=== PATIENT | female | born 2000 | race Caucasian/White ===

== ENCOUNTER 2022-03-04 15:19 | Emergency (ER) | payer BC ==
--- OUTSIDE RECORDS SUMMARY | 2022-03-04 15:28 | XMS REPORT | Continuity of Care Document ---
:2000 Author Organization [facility] t Address [address] [place] [address] Care Team Providers Name Role Phone SylvieNisha Jerry Primary Care Physician ProviderDebbi Attending Clinician Unavailable ANGE GASTON Attending Clinician Unavailable Ange Gaston CNM Attending Clinician DOMNIIQUE PENNY Attending Clinician Unavailable Antonio, Olindarobert Attending Clinician Unavailable Brenton Aden MD Attending Clinician BRENTON ADEN Attending Clinician Unavailable Dominique Penny CNM Attending Clinician YARA EDDY Attending Clinician Unavailable Yara Eddy DO Attending Clinician JEFF NICHOLS Attending Clinician Unavailable Doctor Unassigned, Coward Attending Clinician Unavailable ADALBERTO CLOUD Attending Clinician Unavailable 2, [facility] Attending Clinician Unavailable Adalberto Cloud MD Attending Clinician Lab, [facility] Fam Pob I Attending Clinician Unavailable Sloane Dubois Attending Clinician SLOANE CANNON Attending Clinician Unavailable Jordi CHILD CARE, Jonathon Peña Attending Clinician JONATHON BACON Attending Clinician Unavailable [facility]ending [facility]ician Unavailable HAYLEE REED Attending Clinician Unavailable Serenity OSEGUERAC, Haylee Guillermo Attending Clinician Akinlincoln ANDERSONCNP, Hiram Guillermo Attending Clinician [phone] CHILD CARE, Rosa Attending Clinician Goyo SHAFFER, Basil Attending Clinician BASIL NANCE Attending Clinician Unavailable Bucky CHILD CARE, Char Attending Clinician HIRAM GLASS Attending Clinician Unavailable Manuel Leal Attending Clinician Catherine SHAFFER, Souleymane Lee Attending Clinician Marquis SHAFFER, Sarika Attending Clinician Nunu CHILD CARE, Omayra Geller Attending Clinician YARA EDDY Admitting Clinician Unavailable Payers Payer Name Policy Type Policy Number Effective Date Expiration Date S seth [employer] OF [place] - [id number] 2019 OUT OF STATE 00:00:00 [facility] [id number] 2021 [facility] 00:00:00 COMMERCIAL [id number] 2018 NON-CONTRACT 00:00:00 GENERIC Problems Condition Condition Condition Status Onset Resolution Last Treating Co mments Source Name Details Category Date Date Treatment Clinician Date Sadness Sadness Disease Active 2022-0 Univers 1-03 ity of 00:00: [place] 00 Medical Branch Nausea and Nausea and Disease Active 2021-02 U nivers vomiting vomiting 2-07 ity of during during 00:00: [place] 00 [facility] Branch History of History of Disease Active 2021-02 U nivers chlamydia chlamydia 0-26 ity of 00:00: [place] 00 Medical Branch Breakthrou Breakthrou Disease Active 0 U nivers gh gh 4-13 ity of bleeding bleeding 00:00: [place] on on 00 Medical Depo-Prove Depo-Prove Br anch ra ra Encounter Encounter Disease Active Uni vers for for 08-25 ity of initial initial 00:00: [place] prescripti prescripti 00 Me dical on of on of Branch contracept contracept wiliam, wiliam, unspecifie unspecifie d d contracept contracept gris gris Screen for Screen for Disease Active U nivers STD STD 08-25 ity of (sexually ([place]ually [place] transmit[place] transmitte 00 Me dical d disease) d disease) Br anch Body mass Body mass Disease Active Uni vers index index 08-25 ity of (BMI) of (BMI) of 00:00: [place] 19.0 to 19.0 to 00 Medical 19.9 in 19.9 in Branch adult adult Allergies, Adverse Reactions, Alerts Allergy Allergy Status Severity Reaction(s) Onset Inactive Treating Comm ents Source Name Type Date Date Clinician NO KNOWN Drug Active Univers ALLERGIE Class ity of S [facility] Social History Social Habit Start Date Stop Date Quantity Comments Source ASSERTION 2021-12-03 [facility] 00:00:00 [facility] History SDOH University o f Alcohol Comment [place] Med ical Branch History SDOH University o f Alcohol Std [place] Medical Drinks Branch History SDMS University o f Alcohol Binge [place] [facility] al [facility] Exposure to 2022-02-15 2022-02-25 Not sure [facility] SARS-CoV-2 00:00:00 14:00:00 [facility] (event) Branch Alcohol intake 2022-02-25 2022-02-25 Ex-drinker [facility] 00:00:00 00:00:00 (finding) [facility] Tobacco use and 2021-12-18 2021-12-18 Smokeless tobacco Un iversity of exposure 00:00:00 00:00:00 non-user [facility] History SDOH 2018-08-25 2018-08-25 1 University o f Alcohol Frequency 00:00:00 00:00:00 [facility] edical [place] Sex Assigned At [birth year] Universit y of 00:00:00 00:00:00 [facility] Smoking Status Start Date Stop Date Source Never smoked tobacco [facility] Medications Ordered Filled Start Stop Current Ordering Indication Dosage Frequency Signature Comments Components Source Medication Medication Date Date Medication? Clinician (SIG) Name Name proMETHazin 2021-02 Yes [id number] 25mg Take 1 Univers e 25 mg 2-06 tablet by ity of tablet 00:00: mouth [place] 00 every 4 Medical (four) Branch hours as needed for Nausea and Vomiting (N/V). proMETHazin 2021-02 Yes [id number] 25mg Take 1 Univers e 25 mg 2-06 tablet by ity of tablet 00:00: mouth [place] 00 every 4 Medical (four) Branch hours as needed for Nausea and Vomiting (N/V). proMETHazin 2021-02 Yes [id number] 25mg Take 1 Univers e 25 mg 2-06 tablet by ity of tablet 00:00: mouth [place] 00 every 4 Medical (four) Branch hours as needed for Nausea and Vomiting (N/V). NaCl 0.9% 2021-02- No 1000mL at 999 Uni vers (NS) bolus 1-06 11-06 mL/hr, ity of infusion 20:00: 21:30 1,000 mL, Mic as 1,000 mL 00 :00 IV Medical Infusion, Branch ONCE, 1 dose, On 12/29/21 at 1400, IZAIAH No known 2021-02 No No known Unive rs medications 1-06 medication it y of 12:01: s [address] No known 2021-02 No No known Unive rs medications 1-06 medication it y of 12:01: [address] 2021-02- No Take by Unive rs vit 0-26 10-26 mouth. ity of calc,iron,f 14:24: 00:00 [place] olic 53 :00 Medical ( Branch VITAMIN ORAL) 2021-02- No Take by Unive rs vit 0-26 10-26 mouth. ity of calc,iron,f 14:24: 00:00 [place] olic 53 :00 Medical ( Branch VITAMIN ORAL) PNV 67-iron 2021-02 Yes [id number] 1{capsu Take 1 Univers ps-folate 0-26 le} capsule by ity of no.1-dha 00:00: mouth [place] (VITAFOL 00 daily. Medical ULTRA) 29 Branch mg iron- 1 mg-200 mg Cap PNV 67-iron 2021-02- No [id number] 1{capsu Take 1 Univers ps-folate 0-26 11-06 le} capsule by ity of no.1-dha 00:00: 00:00 mouth [place] (VITAFOL 00 :00 daily. Medical ULTRA) 29 Branch mg iron- 1 mg-200 mg Cap PNV 67-iron 2021-02- No [id number] 1{capsu Take 1 Univers ps-folate 0-26 11-06 le} capsule by ity of no.1-dha 00:00: 00:00 mouth [place] (VITAFOL 00 :00 daily. Medical ULTRA) 29 Branch mg iron- 1 mg-200 mg Cap 2020-02 Yes [facility] 1-22 mouth. ity of calc,iron,f 14:22: [place] olic 00 Medical ( Branch VITAMIN ORAL) 2020-02 Yes Take by [facility] vit 1-22 mouth. ity of calc,iron,f 14:22: [place] olic 00 Medical ( Branch VITAMIN ORAL) 2020-02 Yes Take by [facility] vit 1-22 mouth. ity of calc,iron,f 14:22: [place] olic 00 Medical ( Branch VITAMIN ORAL) norgestimat 0 Yes [id number] 1{tbl} Take 1 Univers e-ethinyl 4-13 tablet by ity o f estradioL 00:00: mouth [place] (ORTHO 00 daily. Medical TRI-CYCLEN, [place] 28,) 0.18/0.215/ 0.25 mg-35 mcg (28) tablet norgestimat Yes [id number] 1{tbl} Take 1 Univers e-ethinyl 4-13 tablet by ity o f estradioL 00:00: mouth [place] (ORTHO 00 daily. Medical TRI-CYCLEN, [place] 28,) 0.18/0.215/ 0.25 mg-35 mcg (28) tablet norgestimat 0 Yes [id number] 1{tbl} Take 1 Univers e-ethinyl 4-13 tablet by ity o f estradioL 00:00: mouth [place] (ORTHO 00 daily. Medical TRI-CYCLEN, [place] 28,) 0.18/0.215/ 0.25 mg-35 mcg (28) tablet norgestimat 0 Yes [id number] 1{tbl} Take 1 Univers e-ethinyl 4-13 tablet by ity o f estradioL 00:00: mouth [place] (ORTHO 00 daily. [place] [address],) 0.18/0.215/ 0.25 mg-35 mcg (28) tablet norgestimat Yes [id number] 1{tbl} Take 1 Univers e-ethinyl 4-13 tablet by ity o f estradioL 00:00: mouth [place] (ORTHO 00 daily. [place] [address],) 0.18/0.215/ 0.25 mg-35 mcg (28) tablet norgestimat 2020-0 Yes [id number] 1{tbl} Take 1 Univers e-ethinyl 4-13 tablet by ity o f estradioL 00:00: mouth [place] (ORTHO 00 daily. [place] [address],) 0.18/0.215/ 0.25 mg-35 mcg (28) tablet norgestimat 0 2021- No [id number] 1{tbl} Take 1 Univers e-ethinyl 4-13 10-26 tablet by ity of estradioL 00:00: 00:00 mouth [place] (ORTHO 00 :00 daily. [place] [address],) 0.18/0.215/ 0.25 mg-35 mcg (28) tablet norgestimat 0 2021- No [id number] 1{tbl} Take 1 Univers e-ethinyl 4-13 10-26 tablet by ity of estradioL 00:00: 00:00 mouth [place] (ORTHO 00 :00 daily. [place] [address],) 0.18/0.215/ 0.25 mg-35 mcg (28) tablet azithromyci 2019-0 2019- No [id number] 1000mg Take 2 Univers n 500 mg 7-23 07-25 tablets by ity of tablet 00:00: 04:59 mouth [place] 00 :00 daily for Medical 1 day. Branch azithromyci 2020-0 2019- No [id number] 1000mg Take 2 Univers n 500 mg 7-23 07-25 tablets by ity of tablet 00:00: 04:59 mouth [place] 00 :00 daily for Medical 1 day. Branch azithromyci 2020-0 2019- No [id number] 1000mg Take 2 Univers n 500 mg 09-1425 tablets by ity of tablet 00:00: 04:59 mouth [place] 00 :00 daily for Medical 1 day. Branch azithromyci 2019- No [id number] 1000mg Take 2 Univers n 500 mg 7- 07-25 tablets by ity of tablet 00:00: 04:59 mouth [place] 00 :00 daily for Medical 1 day. Branch medroxyPROG 2020-2020- No [id number] 150mg Univers ESTERone 09-13- ity of (DEPO-PROVE 20:00: 19:59 [place] RA) 00 :00 Medical injection Branch 150 mg medroxyPROG 2019-2020- No [id number] 150mg 150 mg, Univers ESTERone 09-13 Intramuscu ity of (DEPO-PROVE 20:00: 19:59 lar, [place] RA) 00 :00 [id number], Medical injection 4 doses, Branch 150 mg First dose on Thu09/14/19 at 1500, Last dose on Thu05/23/20 at 1500, Routine medroxyPROG 2019- No [id number] 150mg Univers ESTERone 09-13- ity of (DEPO-PROVE 20:00: 19:59 [place] RA) 00 :00 Medical injection Branch 150 mg medroxyPROG 2019- No [id number] 150mg 150 mg, Univers ESTERone 09-13 Intramuscu ity of (DEPO-PROVE 20:00: 19:59 [facility], [place] RA) 00 :00 [id number], Medical injection 4 doses, Branch 150 mg First dose on Thu09/14/19 at 1500, Last dose on Thu05/23/20 at 1500, Routine medroxyPROG 2019-2020- No [id number] 150mg Univers ESTERone 09-13 ity of (DEPO-PROVE 20:00: 19:59 [place] RA) 00 :00 Medical injection Branch 150 mg medroxyPROG 2019- No [id number] 150mg Univers ESTERone 09-13- ity of (DEPO-PROVE 20:00: 19:59 [place] RA) 00 :00 Medical injection Branch 150 mg medroxyPROG 2019-2020- No [id number] 150mg Univers ESTERone 09-13- ity of (DEPO-PROVE 20:00: 19:59 [place] RA) 00 :00 Medical injection Branch 150 mg medroxyPROG 2020-0 2020- No [id number] 150mg Univers ESTERone 09-13- ity of (DEPO-PROVE 20:00: 19:59 [place] RA) 00 :00 Medical injection Branch 150 mg medroxyPROG 2020-0 2020- No [id number] 150mg Univers ESTERone 09-13- ity of (DEPO-PROVE 20:00: 19:59 [place] RA) 00 :00 Medical injection Branch 150 mg medroxyPROG 2020-0 2020- No [id number] 150mg Univers ESTERone 09-13- ity of (DEPO-PROVE 20:00: 19:59 [place] RA) 00 :00 Medical injection Branch 150 mg medroxyPROG 2020-0 2020- No [id number] 150mg 150 mg, Univers ESTERone 09-13- Intramuscu ity of (DEPO-PROVE 20:00: 19:59 lar, [place] RA) 00 :00 [id number], Medical injection 4 doses, Branch 150 mg First dose on Thu09/14/19 at 1500, Last dose on Thu05/23/20 at 1500, Routine medroxyPROG 2020-0 2020- No [id number] 150mg Univers ESTERone 09-13- ity of (DEPO-PROVE 20:00: 19:59 [place] RA) 00 :00 Medical injection Branch 150 mg medroxyPROG 2020-0 2020- No [id number] 150mg Univers ESTERone 09-13- ity of (DEPO-PROVE 20:00: 19:59 [place] RA) 00 :00 Medical injection Branch 150 mg medroxyPROG 2020-0 2020- No [id number] 150mg Univers ESTERone 09-13- ity of (DEPO-PROVE 20:00: 19:59 [place] RA) 00 :00 Medical injection Branch 150 mg medroxyPROG 2020-0 2020- No [id number] 150mg Univers ESTERone 09-13- ity of (DEPO-PROVE 20:00: 19:59 [place] RA) 00 :00 Medical injection Branch 150 mg medroxyPROG 2020-0 2020- No [id number] 150mg Univers ESTERone 09-13- ity of (DEPO-PROVE 20:00: 19:59 [place] RA) 00 :00 Medical injection Branch 150 mg medroxyPROG 2020-0 2020- No [id number] 150mg 150 mg, Univers ESTERone 09-13 Intramuscu ity of (DEPO-PROVE 20:00: 19:59 lar, [place] RA) 00 :00 [id number], Medical injection 4 doses, Branch 150 mg First dose on Thu09/14/19 at 1500, Last dose on Thu05/23/20 at 1500, Routine medroxyPROG 2019-0 2020- No [id number] 150mg Univers ESTERone 09-13 ity of (DEPO-PROVE 20:00: 19:59 [place] RA) 00 :00 Medical injection Branch 150 mg medroxyPROG 2020-0 2020- No [id number] 150mg Univers ESTERone 09-13- ity of (DEPO-PROVE 20:00: 19:59 [place] RA) 00 :00 Medical injection Branch 150 mg medroxyPROG 2020-0 2020- No [id number] 150mg Univers ESTERone 09-13- ity of (DEPO-PROVE 20:00: 19:59 [place] RA) 00 :00 Medical injection Branch 150 mg medroxyPROG 2019-0 Yes [id number] 150mg Univers ESTERone 7-03 ity of (DEPO-PROVE 21:00: [place] RA) 00 Medical injection Branch 150 mg medroxyPROG 2019-0 Yes [id number] 150mg Univers ESTERone 7-03 ity of (DEPO-PROVE 21:00: [place] RA) 00 Medical injection Branch 150 mg medroxyPROG 2019-0 Yes [id number] 150mg Univers ESTERone 7-03 ity of (DEPO-PROVE 21:00: [place] RA) 00 Medical injection Branch 150 mg medroxyPROG 2019-0 Yes [id number] 150mg Univers ESTERone 7-03 ity of (DEPO-PROVE 21:00: [place] RA) 00 Medical injection Branch 150 mg medroxyPROG 2019-0 Yes [id number] 150mg Univers ESTERone 7-03 ity of (DEPO-PROVE 21:00: [place] RA) 00 Medical injection Branch 150 mg medroxyPROG 2019-0 Yes [id number] 150mg Univers ESTERone 7-03 ity of (DEPO-PROVE 21:00: [place] RA) 00 Medical injection Branch 150 mg medroxyPROG 2019-0 Yes [id number] 150mg Univers ESTERone 7-03 ity of (DEPO-PROVE 21:00: [place] RA) 00 Medical injection Branch 150 mg medroxyPROG 2019-0 Yes [id number] 150mg Univers ESTERone 7-03 ity of (DEPO-PROVE 21:00: [place] RA) 00 Medical injection Branch 150 mg medroxyPROG 2019-0 Yes [id number] 150mg Univers ESTERone 7-03 ity of (DEPO-PROVE 21:00: [place] RA) 00 Medical injection Branch 150 mg medroxyPROG 2019-0 Yes [id number] 150mg Univers ESTERone 7-03 ity of (DEPO-PROVE 21:00: [place] RA) 00 Medical injection Branch 150 mg medroxyPROG 2018-0 Yes [id number] 150mg Univers ESTERone 7-03 ity of (DEPO-PROVE 21:00: [place] RA) 00 Medical injection Branch 150 mg medroxyPROG 2018-0 Yes [id number] 150mg Univers ESTERone 7-03 ity of (DEPO-PROVE 21:00: [place] RA) 00 Medical injection Branch 150 mg medroxyPROG 2018-0 Yes [id number] 150mg 150 mg, Univers ESTERone 7-03 Intramuscu ity o f (DEPO-PROVE 21:00: lar, [place] RA) 00 [id number], Medical injection First dose Bran ch 150 mg on Thu08/25/18 at 1600, Until Discontinu ed, Routine medroxyPROG 2018- Yes [id number] 150mg Univers ESTERone 7-03 ity of (DEPO-PROVE 21:00: [place] RA) 00 Medical injection Branch 150 mg medroxyPROG 2019-0 Yes [id number] 150mg Univers ESTERone 7-03 ity of (DEPO-PROVE 21:00: [place] RA) 00 Medical injection Branch 150 mg medroxyPROG 2019-0 Yes [id number] 150mg Univers ESTERone 7-03 ity of (DEPO-PROVE 21:00: [place] RA) 00 Medical injection Branch 150 mg medroxyPROG 2018-0 Yes [id number] 150mg Univers ESTERone 7-03 ity of (DEPO-PROVE 21:00: [place] RA) 00 Medical injection Branch 150 mg medroxyPROG 2019-0 Yes [id number] 150mg Univers ESTERone 7-03 ity of (DEPO-PROVE 21:00: [place] RA) 00 Medical injection Branch 150 mg medroxyPROG 2019-0 Yes [id number] 150mg Univers ESTERone 7-03 ity of (DEPO-PROVE 21:00: [place] RA) 00 Medical injection Branch 150 mg medroxyPROG 2019-0 Yes [id number] 150mg 150 mg, Univers ESTERone 7-03 Intramuscu ity o f (DEPO-PROVE 21:00: lar, [place] RA) 00 [id number], Medical injection First dose Bran ch 150 mg on Thu08/25/18 at 1600, Until Discontinu ed, Routine medroxyPROG 2018-0 Yes [id number] 150mg Univers ESTERone 7-03 ity of (DEPO-PROVE 21:00: [place] RA) 00 Medical injection Branch 150 mg medroxyPROG 2019-0 Yes [id number] 150mg Univers ESTERone 7-03 ity of (DEPO-PROVE 21:00: [place] RA) 00 Medical injection Branch 150 mg medroxyPROG 2019-0 Yes [id number] 150mg Univers ESTERone 7-03 ity of (DEPO-PROVE 21:00: [place] RA) 00 Medical injection Branch 150 mg medroxyPROG 2019-0 Yes [id number] 150mg Univers ESTERone 7-03 ity of (DEPO-PROVE 21:00: [place] RA) 00 Medical injection Branch 150 mg medroxyPROG 2019-0 Yes [id number] 150mg Univers ESTERone 7-03 ity of (DEPO-PROVE 21:00: [place] RA) 00 Medical injection Branch 150 mg medroxyPROG 2019-0 Yes [id number] 150mg Univers ESTERone 7-03 ity of (DEPO-PROVE 21:00: [place] RA) 00 Medical injection Branch 150 mg medroxyPROG 2019-0 2020- No [id number] 150mg Univers ESTERone 7-03 -22 ity of (DEPO-PROVE 21:00: 19:47 [place] RA) 00 :30 Medical injection Branch 150 mg medroxyPROG 2019-0 2020- No [id number] 150mg Univers ESTERone 7-03 -22 ity of (DEPO-PROVE 21:00: 19:47 [place] RA) 00 :30 Medical injection Branch 150 mg Immunizations Ordered Immunization Filled Immunization Date Status Commen ts Source Name Name Influenza Virus 2021-12-18 Completed Universit y of Vaccine [facility] IM, 00:00:00 [place] Me dical Preserv and ABX Free Bran ch 6 MO-64 YRS Influenza Virus 2021-12-18 Completed Universit y of Vaccine [facility] IM, 00:00:00 [place] Me dical Preserv and ABX Free Bran ch 6 MO-64 YRS Influenza Virus 2021-12-18 Completed Universit y of Vaccine Quad IM, 00:00:00 [place] Me dical Preserv and ABX Free Bran ch 6 MO-64 YRS Influenza Virus 2021-12-18 Completed Universit y of Vaccine Quad IM, 00:00:00 [place] Me dical Preserv and ABX Free Bran ch 6 MO-64 YRS Influenza Virus 2021-12-18 Completed Universit y of Vaccine Quad IM, 00:00:00 [place] Me dical Preserv and ABX Free Bran ch 6 MO-64 YRS Influenza Virus 2021-12-18 Completed Universit y of Vaccine Quad IM, 00:00:00 [place] Me dical Preserv and ABX Free Bran ch 6 MO-64 YRS Influenza Virus 2021-12-18 Completed Universit y of Vaccine Quad IM, 00:00:00 [place] Me dical Preserv and ABX Free Bran ch 6 MO-64 YRS Influenza Virus 2021-12-18 Completed Universit y of Vaccine Quad IM, 00:00:00 [place] Me dical Preserv and ABX Free Bran ch 6 MO-64 YRS SARS-COV-2 COVID-19 2021-02-13 Completed Unive rsity of PFIZER VACCINE 00:00:00 [facility] SARS-COV-2 COVID-19 2021-02-13 Completed Unive rsity of PFIZER VACCINE 00:00:00 [facility] SARS-COV-2 COVID-19 2021-02-13 Completed Unive rsity of PFIZER VACCINE 00:00:00 [facility] SARS-COV-2 COVID-19 2021-02-13 Completed Unive rsity of PFIZER VACCINE 00:00:00 [facility] SARS-COV-2 COVID-19 2021-02-13 Completed Unive rsity of PFIZER VACCINE 00:00:00 [facility] SARS-COV-2 COVID-19 2021-02-13 Completed Unive rsity of PFIZER VACCINE 00:00:00 [facility] SARS-COV-2 COVID-19 2021-02-13 Completed Unive rsity of PFIZER VACCINE 00:00:00 [facility] SARS-COV-2 COVID-19 2021-02-13 Completed Unive rsity of PFIZER VACCINE 00:00:00 [facility] HPV9 2019-02-28 Completed University of 00:00:00 [facility] HPV9 2019-02-28 Completed University of 00:00:00 [facility] HPV9 2019-02-28 Completed University of 00:00:00 [facility] HPV9 2019-02-28 Completed University of 00:00:00 [facility] HPV9 2019-02-28 Completed University of 00:00:00 [facility] HPV9 2019-02-28 Completed University of 00:00:00 [facility] HPV9 2019-02-28 Completed University of 00:00:00 [facility] HPV9 2019-02-28 Completed University of 00:00:00 [facility] HPV9 2019-02-28 Completed University of 00:00:00 [facility] HPV9 2019-02-28 Completed University of 00:00:00 [facility] HPV9 2019-02-28 Completed University of 00:00:00 [facility] HPV9 2019-02-28 Completed University of 00:00:00 [facility] HPV9 2019-02-28 Completed University of 00:00:00 [facility] HPV9 2019-02-28 Completed University of 00:00:00 [facility] HPV9 2019-02-28 Completed University of 00:00:00 [facility] HPV9 2019-02-28 Completed University of 00:00:00 [facility] HPV9 2019-02-28 Completed University of 00:00:00 [facility] HPV9 2019-02-28 Completed University of 00:00:00 [facility] HPV9 2019-02-28 Completed University of 00:00:00 [facility] HPV9 2019-02-28 Completed University of 00:00:00 [facility] HPV9 2019-02-28 Completed University of 00:00:00 [facility] HPV9 2019-02-28 Completed University of 00:00:00 [facility] HPV9 2019-02-28 Completed University of 00:00:00 [place] [facility] HPV9 2019-02-28 Completed University of 00:00:00 [place] [facility] HPV9 2019-02-28 Completed University of 00:00:00 [place] [facility] HPV9 2019-02-28 Completed University of 00:00:00 [place] [facility] HPV9 2019-02-28 Completed University of 00:00:00 [place] [facility] HPV9 2019-02-28 Completed University of 00:00:00 [place] [facility] HPV9 2019-02-28 Completed University of 00:00:00 [place] [facility] HPV9 2019-02-28 Completed University of 00:00:00 [place] [facility] HPV9 2019-02-28 Completed University of 00:00:00 [place] [facility] HPV9 2019-02-28 Completed University of 00:00:00 [place] [facility] HPV9 2019-02-28 Completed University of 00:00:00 [place] [facility] HPV9 2019-02-28 Completed University of 00:00:00 [place] [facility] HPV9 2019-02-28 Completed University of 00:00:00 [place] [facility] HPV9 2019-02-28 Completed University of 00:00:00 [place] [facility] HPV9 2019-02-28 Completed University of 00:00:00 [place] [facility] HPV9 2018-09-27 Completed University of 00:00:00 [place] [facility] HPV9 2018-09-27 Completed University of 00:00:00 [place] [facility] HPV9 2018-09-27 Completed University of 00:00:00 [place] [facility] HPV9 2018-09-27 Completed University of 00:00:00 [place] [facility] HPV9 2018-09-27 Completed University of 00:00:00 [place] [facility] HPV9 2018-09-27 Completed University of 00:00:00 [place] [facility] HPV9 2018-09-27 Completed University of 00:00:00 [place] [facility] HPV9 2018-09-27 Completed University of 00:00:00 [place] [facility] HPV9 2018-09-27 Completed University of 00:00:00 [place] [facility] HPV9 2018-09-27 Completed University of 00:00:00 [place] [facility] HPV9 2018-09-27 Completed University of 00:00:00 [place] [facility] HPV9 2018-09-27 Completed University of 00:00:00 [place] [facility] HPV9 2018-09-27 Completed University of 00:00:00 [place] [facility] HPV9 2018-09-27 Completed University of 00:00:00 [place] [facility] HPV9 2018-09-27 Completed University of 00:00:00 [place] [facility] HPV9 2018-09-27 Completed University of 00:00:00 [place] [facility] HPV9 2018-09-27 Completed University of 00:00:00 [place] [facility] HPV9 2018-09-27 Completed University of 00:00:00 [place] [facility] HPV9 2018-09-27 Completed University of 00:00:00 [place] [facility] HPV9 2018-09-27 Completed University of 00:00:00 [place] [facility] HPV9 2018-09-27 Completed University of 00:00:00 [place] [facility] HPV9 2018-09-27 Completed University of 00:00:00 [place] [facility] HPV9 2018-09-27 Completed University of 00:00:00 [place] [facility] HPV9 2018-09-27 Completed University of 00:00:00 [place] [facility] HPV9 2018-09-27 Completed University of 00:00:00 [place] [facility] HPV9 2018-09-27 Completed University of 00:00:00 [place] [facility] HPV9 2018-09-27 Completed University of 00:00:00 [place] [facility] HPV9 2018-09-27 Completed University of 00:00:00 [place] [facility] HPV9 2018-09-27 Completed University of 00:00:00 [place] [facility] HPV9 2018-09-27 Completed University of 00:00:00 [place] [facility] HPV9 2018-09-27 Completed University of 00:00:00 [place] [facility] HPV9 2018-09-27 Completed University of 00:00:00 [place] [facility] [facility] HPV9 2018-09-27 Completed [facility] 00:00:00 [facility] HPV9 2018-09-27 Completed [facility] 00:00:00 [facility] HPV9 2018-09-27 Completed [facility] 00[facility]00:00 [facility] HPV9 2018-09-27 Completed [facility] 00:00:00 [facility] HPV9 2018-09-27 Completed [facility] 00:00:00 [facility] HPV9 2018-09-27 Completed [facility] 00:00:00 [facility] HPV9 2018-09-27 Completed [facility] 00:00:00 [facility] HPV9 2018-09-27 Completed [facility] 00:00:00 [facility] HPV9 2018-09-27 Completed [facility] 00:00:00 [facility] HPV9 2018-09-27 Completed [facility] 00:00:00 [facility] HPV9 2018-09-27 Completed [facility] 00:00:00 [facility] HPV9 2018-09-27 Completed [facility] 00:00:00 [facility] HPV9 2018-09-27 Completed [facility] 00:00:00 [facility] HPV9 2018-09-27 Completed [facility] 00:00:00 [facility] HPV9 2018-09-27 Completed [facility] 00:00:00 [facility] HPV9 2018-09-27 Completed [facility] 00:00:00 [facility] HPV9 2018-09-27 Completed [facility] 00:00:00 [facility] HPV9 2018-09-27 Completed [facility] 00:00:00 [facility] HPV9 2018-09-27 Completed [facility] 00:00:00 [facility] HPV9 2018-08-25 Completed [facility] 00:00:00 [facility] HPV9 2018-08-25 Completed [facility] 00:00:00 [facility] HPV9 2018-08-25 Completed [facility] 00:00:00 [facility] HPV9 2018-08-25 Completed [facility] 00:00:00 [facility] HPV9 2018-08-25 Completed [facility] 00:00:00 [facility] HPV9 2018-08-25 Completed [facility] 00:00:00 [facility] HPV9 2018-08-25 Completed [facility] 00:00:00 [facility] HPV9 2018-08-25 Completed [facility] 00:00:00 [facility] HPV9 2018-08-25 Completed [facility] 00:00:00 [facility] HPV9 2018-08-25 Completed [facility] 00:00:00 [facility] HPV9 2018-08-25 Completed [facility] 00:00:00 [facility] HPV9 2018-08-25 Completed [facility] 00:00:00 [facility] HPV9 2018-08-25 Completed [facility] 00:00:00 [facility] HPV9 2018-08-25 Completed [facility] 00:00:00 [facility] HPV9 2018-08-25 Completed [facility] 00:00:00 [facility] HPV9 2018-08-25 Completed [facility] 00:00:00 [facility] HPV9 2018-08-25 Completed [facility] 00:00:00 [facility] HPV9 2018-08-25 Completed [facility] 00:00:00 [facility] HPV9 2018-08-25 Completed [facility] 00:00:00 [facility] HPV9 2018-08-25 Completed [facility] 00:00:00 [facility] HPV9 2018-08-25 Completed [facility] 00:00:00 [facility] HPV9 2018-08-25 Completed [facility] 00:00:00 [facility] HPV9 2018-08-25 Completed [facility] 00:00:00 [facility] HPV9 2018-08-25 Completed [facility] 00:00:00 [facility] HPV9 2018-08-25 Completed [facility] 00:00:00 [facility] HPV9 2018-08-25 Completed [facility] 00:00:00 [facility] HPV9 2018-08-25 Completed [facility] 00:00:00 [facility] HPV9 2018-08-25 Completed [facility] 00:00:00 [facility] HPV9 2018-08-25 Completed [facility] 00:00:00 [facility] HPV9 2018-08-25 Completed [facility] 00:00:00 [facility] HPV9 2018-08-25 Completed [facility] 00:00:00 [facility] HPV9 2018-08-25 Completed [facility] 00:00:00 [facility] HPV9 2018-08-25 Completed [facility] 00:00:00 [facility] HPV9 2018-08-25 Completed [facility] 00:00:00 [facility] HPV9 2018-08-25 Completed [facility] 00:00:00 [facility] HPV9 2018-08-25 Completed [facility] 00:00:00 [facility] HPV9 2018-08-25 Completed [facility] 00:00:00 [facility] HPV9 2018-08-25 Completed [facility] 00:00:00 [facility] HPV9 2018-08-25 Completed [facility] 00:00:00 [facility] HPV9 2018-08-25 Completed [facility] 00:00:00 [facility] HPV9 2018-08-25 Completed [facility] 00:00:00 [facility] HPV9 2018-08-25 Completed [facility] 00:00:00 [facility] HPV9 2018-08-25 Completed [facility] 00:00:00 [facility] HPV9 2018-08-25 Completed [facility] 00:00:00 [facility] HPV9 2018-08-25 Completed [facility] 00:00:00 [facility] HPV9 2018-08-25 Completed [facility] 00:00:00 [facility] HPV9 2018-08-25 Completed [facility] 00:00:00 [facility] HPV9 2018-08-25 Completed [facility] 00:00:00 [facility] HPV9 2018-08-25 Completed [facility] 00:00:00 [facility] HPV9 2018-08-25 Completed [facility] 00:00:00 [facility] HPV9 2018-08-25 Completed [facility] 00:00:00 [facility] Meningococcal Vaccine 2018-07-14 Completed Uni vers[facility] 00:00:00 [facility] Meningococcal Vaccine 2018-07-14 Completed [facility] 00:00:00 [facility] Meningococcal Vaccine 2018-07-14 Completed [facility] 00:00:00 [facility] Meningococcal Vaccine 2018-07-14 Completed [facility] 00:00:00 [facility] Meningococcal Vaccine 2018-07-14 Completed [facility] 00:00:00 [facility] Meningococcal Vaccine 2018-07-14 Completed [facility] 00:00:00 [facility] Meningococcal Vaccine 2018-07-14 Completed [facility] 00:00:00 [facility] Meningococcal Vaccine 2018-07-14 Completed [facility] 00:00:00 [facility] Meningococcal Vaccine 2018-07-14 Completed [facility] 00:00:00 [facility] Meningococcal 2018-07-14 Completed [facility] Pol[facility] 00:00:00 [facility] (groups A, C, Y and Branc h W-135) conjugate vaccine (MCV4P) Meningococcal Vaccine 2018-07-14 Completed [facility] 00:00:00 [facility] Meningococcal 2018-07-14 Completed [facility] Polysaccharide 00:00:00 [facility] (groups A, C, Y and Branc h W-135) conjugate vaccine (MCV4P) Meningococcal Vaccine 2018-07-14 Completed [facility] 00:00:00 [facility] Meningococcal 2018-07-14 Completed [facility] Polysaccharide 00:00:00 [facility] (groups A, C, Y and Branc h W-135) conjugate vaccine (MCV4P) Meningococcal Vaccine 2018-07-14 Completed [facility] 00:00:00 [facility] Meningococcal Vaccine 2018-07-14 Completed [facility] 00:00:00 [facility] Meningococcal Vaccine 2018-07-14 Completed [facility] 00:00:00 [facility] Meningococcal Vaccine 2018-07-14 Completed [facility] 00:00:00 [facility] Meningococcal Vaccine 2018-07-14 Completed [facility] 00:00:00 [facility] Meningococcal Vaccine 2018-07-14 Completed [facility] 00:00:00 [facility] Meningococcal Vaccine 2018-07-14 Completed [facility] 00:00:00 [facility] Meningococcal Vaccine 2018-07-14 Completed [facility] 00:00:00 [facility] Meningococcal Vaccine 2018-07-14 Completed [facility] 00:00:00 [facility] Meningococcal Vaccine 2018-07-14 Completed [facility] 00:00:00 [facility] Meningococcal Vaccine 2018-07-14 Completed [facility] 00:00:00 [facility] Meningococcal Vaccine 2018-07-14 Completed [facility] 00:00:00 [facility] Meningococcal Vaccine 2018-07-14 Completed [facility] 00:00:00 [facility] Meningococcal Vaccine 2018-07-14 Completed [facility] 00:00:00 [facility] Meningococcal Vaccine 2018-07-14 Completed [facility] 00:00:00 [facility] Meningococcal Vaccine 2018-07-14 Completed [facility] 00:00:00 [facility] Meningococcal Vaccine 2018-07-14 Completed [facility] 00:00:00 [facility] Meningococcal Vaccine 2018-07-14 Completed [facility] 00:00:00 [facility] Meningococcal Vaccine 2018-07-14 Completed [facility] 00:00:00 [facility] Meningococcal Vaccine 2018-07-14 Completed [facility] 00:00:00 [facility] Meningococcal Vaccine 2018-07-14 Completed [facility] 00:00:00 [facility] Meningococcal Vaccine 2018-07-14 Completed [facility] 00:00:00 [facility] Meningococcal Vaccine 2018-07-14 Completed [facility] 00:00:00 [facility] Meningococcal Vaccine 2013-10-14 Completed [facility] 00:00:00 [facility] TDAP 2013-10-14 Completed [facility] 00:00:00 [facility] Varicella 2013-10-14 Completed [facility] (varivax)(chicken 00:00:00 [facility] Meningococcal Vaccine 2013-10-14 Completed [facility] 00:00:00 [facility] TDAP 2013-10-14 Completed [facility] 00:00:00 [facility] Varicella 2013-10-14 Completed [facility] (varivax)(chicken 00:00:00 [facility] pox[facility] Meningococcal Vaccine 2013-10-14 Completed [facility] 00:00:00 [facility] TDAP 2013-10-14 Completed [facility] 00:00:00 [facility] Varicella 2013-10-14 Completed [facility] (varivax)(chicken 00:00:00 [facility] pox[facility] Meningococcal Vaccine 2013-10-14 Completed [facility] 00:00:00 [facility] TDAP 2013-10-14 Completed [facility] 00:00:00 [facility] Varicella 2013-10-14 Completed [facility] (varivax)(chicken 00:00:00 [facility] pox) [facility] Meningococcal Vaccine 2013-10-14 Completed [facility] 00:00:00 [facility] TDAP 2013-10-14 Completed [facility] 00:00:00 [facility] Varicella 2013-10-14 Completed [facility] (varivax)(chicken 00:00:00 [facility] pox[facility] Meningococcal Vaccine 2013-10-14 Completed [facility] 00:00:00 [facility] TDAP 2013-10-14 Completed [facility] 00:00:00 [facility] Varicella 2013-10-14 Completed [facility] (varivax)(chicken 00:00:00 [facility] pox[facility] Meningococcal Vaccine 2013-10-14 Completed [facility] 00:00:00 [facility] TDAP 2013-10-14 Completed [facility] 00:00:00 [facility] Varicella 2013-10-14 Completed [facility] (varivax)(chicken 00:00:00 [facility] pox) [facility] Meningococcal Vaccine 2013-10-14 Completed [facility] 00:00:00 [facility] TDAP 2013-10-14 Completed [facility] 00:00:00 [facility] Varicella 2013-10-14 Completed [facility] (varivax)(chicken 00:00:00 [facility] pox) [facility] Meningococcal Vaccine 2013-10-14 Completed [facility] 00:00:00 [facility] TDAP 2013-10-14 Completed [facility] 00:00:00 [facility] Varicella 2013-10-14 Completed [facility] (varivax)(chicken 00:00:00 [facility] pox) [facility] Meningococcal 2013-10-14 Completed [facility] Polysaccharide 00:00:00 [facility] (groups A, C, Y and Branc h W-135) conjugate vaccine (MCV4P) Meningococcal Vaccine 2013-10-14 Completed [facility] 00:00:00 [facility] TDAP 2013-10-14 Completed [facility] 00:00:00 [facility] Varicella 2013-10-14 Completed [facility] (varivax)(chicken 00:00:00 [facility] pox) [facility] Meningococcal 2013-10-14 Completed [facility] Polysaccharide 00:00:00 [place] [facility] (groups A, C, Y and Branc h W-135) conjugate vaccine (MCV4P) Meningococcal Vaccine 2013-10-14 Completed [facility] 00:00:00 [facility] TDAP 2013-10-14 Completed [facility] 00:00:00 [facility] Varicella 2013-10-14 Completed [facility] (varivax)(chicken 00:00:00 [facility] pox) [facility] Meningococcal 2013-10-14 Completed [facility] Polysaccharide 00:00:00 [facility] (groups A, C, Y and Branc h W-135) conjugate vaccine (MCV4P) Meningococcal Vaccine 2013-10-14 Completed [facility] 00:00:00 [facility] Tdap 2013-10-14 Completed [facility] 00:00:00 [facility] Varicella 2013-10-14 Completed [facility] (varivax)(chicken 00:00:00 [facility] pox) [facility] Meningococcal Vaccine 2013-10-14 Completed [facility] 00:00:00 [facility] Tdap 2013-10-14 Completed [facility] 00:00:00 [facility] Varicella 2013-10-14 Completed [facility] (varivax)(chicken 00:00:00 [facility] pox) [facility] Meningococcal Vaccine 2013-10-14 Completed [facility] 00:00:00 [facility] Tdap 2013-10-14 Completed [facility] 00:00:00 [facility] Varicella 2013-10-14 Completed [facility] (varivax)(chicken 00:00:00 [facility] pox) [facility] Meningococcal Vaccine 2013-10-14 Completed [facility] 00:00:00 [facility] Tdap 2013-10-14 Completed [facility] 00:00:00 [facility] Varicella 2013-10-14 Completed [facility] (varivax)(chicken 00:00:00 [facility] pox) [facility] Meningococcal Vaccine 2013-10-14 Completed [facility] 00:00:00 [facility] Tdap 2013-10-14 Completed [facility] 00:00:00 [facility] Varicella 2013-10-14 Completed [facility] (varivax)(chicken 00:00:00 [facility] pox) [facility] Meningococcal Vaccine 2013-10-14 Completed [facility] 00:00:00 [facility] Tdap 2013-10-14 Completed [facility] 00:00:00 [facility] Varicella 2013-10-14 Completed [facility] (varivax)(chicken 00:00:00 [facility] pox) [facility] Meningococcal Vaccine 2013-10-14 Completed [facility] 00:00:00 [facility] TDAP 2013-10-14 Completed [facility] 00:00:00 [facility] Varicella 2013-10-14 Completed [facility] (varivax)(chicken 00:00:00 [facility] pox) [facility] Meningococcal Vaccine 2013-10-14 Completed [facility] 00:00:00 [facility] TDAP 2013-10-14 Completed [facility] 00:00:00 [facility] Varicella 2013-10-14 Completed [facility] (varivax)(chicken 00:00:00 [facility] pox) [facility] Meningococcal Vaccine 2013-10-14 Completed [facility] 00:00:00 [facility] TDAP 2013-10-14 Completed [facility] 00:00:00 [facility] Varicella 2013-10-14 Completed [facility] (varivax)(chicken 00:00:00 [facility] pox) [facility] Meningococcal Vaccine 2013-10-14 Completed [facility] 00:00:00 [facility] TDAP 2013-10-14 Completed [facility] 00:00:00 [facility] Varicella 2013-10-14 Completed [facility] (varivax)(chicken 00:00:00 [facility] pox) [facility] Meningococcal Vaccine 2013-10-14 Completed [facility] 00:00:00 [facility] TDAP 2013-10-14 Completed [facility] 00:00:00 [facility] Varicella 2013-10-14 Completed [facility] (varivax)(chicken 00:00:00 [facility] pox) [facility] Meningococcal Vaccine 2013-10-14 Completed [facility] 00:00:00 [facility] TDAP 2013-10-14 Completed [facility] 00:00:00 [facility] Varicella 2013-10-14 Completed [facility] (varivax)(chicken 00:00:00 [facility] pox) [facility] Meningococcal Vaccine 2013-10-14 Completed [facility] 00:00:00 [facility] TDAP 2013-10-14 Completed [facility] 00:00:00 [facility] Varicella 2013-10-14 Completed [facility] (varivax)(chicken 00:00:00 [facility] pox) [facility] Meningococcal Vaccine 2013-10-14 Completed [facility] 00:00:00 [facility] TDAP 2013-10-14 Completed [facility] 00:00:00 [facility] Varicella 2013-10-14 Completed [facility] (varivax)(chicken 00:00:00 [facility] pox) [facility] Meningococcal Vaccine 2013-10-14 Completed [facility] 00:00:00 [facility] TDAP 2013-10-14 Completed [facility] 00:00:00 [facility] Varicella 2013-10-14 Completed [facility] (varivax)(chicken 00:00:00 [facility] pox) [facility] Meningococcal Vaccine 2013-10-14 Completed [facility] 00:00:00 [facility] TDAP 2013-10-14 Completed [facility] 00:00:00 [facility] Varicella 2013-10-14 Completed [facility] (varivax)(chicken 00:00:00 [facility] pox) [facility] Meningococcal Vaccine 2013-10-14 Completed [facility] 00:00:00 [facility] TDAP 2013-10-14 Completed [facility] 00:00:00 [facility] Varicella 2013-10-14 Completed [facility] (varivax)(chicken 00:00:00 [facility] pox) [facility] Meningococcal Vaccine 2013-10-14 Completed [facility] 00:00:00 [facility] TDAP 2013-10-14 Completed [facility] 00:00:00 [facility] Varicella 2013-10-14 Completed [facility] (varivax)(chicken 00:00:00 [facility] pox) [facility] Meningococcal Vaccine 2013-10-14 Completed [facility] 00:00:00 [facility] TDAP 2013-10-14 Completed [facility] 00:00:00 [facility] Varicella 2013-10-14 Completed [facility] (varivax)(chicken 00:00:00 [facility] pox) [facility] Meningococcal Vaccine 2013-10-14 Completed [facility] 00:00:00 [facility] TDAP 2013-10-14 Completed [facility] 00:00:00 [facility] Varicella 2013-10-14 Completed [facility] (varivax)(chicken 00:00:00 [place] [facility] pox) [facility] Meningococcal Vaccine 2013-10-14 Completed [facility] 00:00:00 [facility] TDAP 2013-10-14 Completed [facility] 00:00:00 [facility] Varicella 2013-10-14 Completed [facility] (varivax)(chicken 00:00:00 [place] [facility] pox) [facility] Meningococcal Vaccine 2013-10-14 Completed [facility] 00:00:00 [facility] TDAP 2013-10-14 Completed [facility] 00:00:00 [facility] Varicella 2013-10-14 Completed [facility] (varivax)(chicken 00:00:00 [facility] pox) [facility] Meningococcal Vaccine 2013-10-14 Completed [facility] 00:00:00 [facility] TDAP 2013-10-14 Completed [facility] 00:00:00 [facility] Varicella 2013-10-14 Completed [facility] (varivax)(chicken 00:00:00 [facility] DTAP 2005-12-01 Completed [facility] 00:00:00 [facility] HEPATITIS A 2005-12-01 Completed [facility] 00:00:00 [facility] DTAP 2005-12-01 Completed [facility] 00:00:00 [facility] HEPATITIS A 2005-12-01 Completed [facility] 00:00:00 [facility] DTAP 2005-12-01 Completed [facility] 00:00:00 [facility] HEPATITIS A 2005-12-01 Completed [facility] 00:00:00 [facility] DTAP 2005-12-01 Completed [facility] 00:00:00 [facility] HEPATITIS A 2005-12-01 Completed [facility] 00:00:00 [facility] DTAP 2005-12-01 Completed [facility] 00:00:00 [facility] HEPATITIS A 2005-12-01 Completed [facility] 00:00:00 [facility] DTAP 2005-12-01 Completed [facility] 00:00:00 [facility] HEPATITIS A 2005-12-01 Completed [facility] 00:00:00 [facility] DTAP 2005-12-01 Completed [facility] 00:00:00 [facility] HEPATITIS A 2005-12-01 Completed [facility] 00:00:00 [facility] DTAP 2005-12-01 Completed [facility] 00:00:00 [facility] HEPATITIS A 2005-12-01 Completed [facility] 00:00:00 [facility] DTAP 2005-12-01 Completed [facility] 00:00:00 [facility] HEPATITIS A 2005-12-01 Completed [facility] 00:00:00 [facility] DTAP 2005-12-01 Completed [facility] 00:00:00 [facility] HEPATITIS A 2005-12-01 Completed [facility] 00:00:00 [facility] DTAP 2005-12-01 Completed [facility] 00:00:00 [facility] HEPATITIS A 2005-12-01 Completed [facility] 00:00:00 [facility] DTAP 2005-12-01 Completed [facility] 00:00:00 [facility] HEPATITIS A 2005-12-01 Completed [facility] 00:00:00 [facility] DTAP 2005-12-01 Completed [facility] 00:00:00 [facility] HEPATITIS A 2005-12-01 Completed [facility] 00:00:00 [facility] DTAP 2005-12-01 Completed [facility] 00:00:00 [facility] HEPATITIS A 2005-12-01 Completed [facility] 00:00:00 [facility] DTAP 2005-12-01 Completed [facility] 00:00:00 [facility] HEPATITIS A 2005-12-01 Completed [facility] 00:00:00 [facility] DTAP 2005-12-01 Completed [facility] 00:00:00 [facility] HEPATITIS A 2005-12-01 Completed [facility] 00:00:00 [facility] DTAP 2005-12-01 Completed [facility] 00:00:00 [facility] HEPATITIS A 2005-12-01 Completed [facility] 00:00:00 [facility] DTAP 2005-12-01 Completed [facility] 00:00:00 [facility] HEPATITIS A 2005-12-01 Completed [facility] 00:00:00 [facility] DTAP 2005-12-01 Completed [facility] 00:00:00 [facility] HEPATITIS A 2005-12-01 Completed [facility] 00:00:00 [facility] DTAP 2005-12-01 Completed [facility] 00:00:00 [facility] HEPATITIS A 2005-12-01 Completed [facility] 00:00:00 [facility] DTAP 2005-12-01 Completed [facility] 00:00:00 [facility] HEPATITIS A 2005-12-01 Completed [facility] 00:00:00 [facility] DTAP 2005-12-01 Completed [facility] 00:00:00 [facility] HEPATITIS A 2005-12-01 Completed [facility] 00:00:00 [facility] DTAP 2005-12-01 Completed [facility] 00:00:00 [facility] HEPATITIS A 2005-12-01 Completed [facility] 00:00:00 [facility] DTAP 2005-12-01 Completed [facility] 00:00:00 [facility] HEPATITIS A 2005-12-01 Completed [facility] 00:00:00 [facility] DTAP 2005-12-01 Completed [facility] 00:00:00 [facility] HEPATITIS A 2005-12-01 Completed [facility] 00:00:00 [facility] DTAP 2005-12-01 Completed [facility] 00:00:00 [facility] HEPATITIS A 2005-12-01 Completed [facility] 00:00:00 [facility] DTAP 2005-12-01 Completed [facility] 00:00:00 [facility] HEPATITIS A 2005-12-01 Completed [facility] 00:00:00 [facility] DTAP 2005-12-01 Completed [facility] 00:00:00 [facility] HEPATITIS A 2005-12-01 Completed [facility] 00:00:00 [facility] DTAP 2005-12-01 Completed [facility] 00:00:00 [facility] HEPATITIS A 2005-12-01 Completed [facility] 00:00:00 [facility] DTAP 2005-12-01 Completed [facility] 00:00:00 [facility] HEPATITIS A 2005-12-01 Completed [facility] 00:00:00 [facility] DTAP 2005-12-01 Completed [facility] 00:00:00 [facility] HEPATITIS A 2005-12-01 Completed [facility] 00:00:00 [facility] DTAP 2005-12-01 Completed [facility] 00:00:00 [facility] HEPATITIS A 2005-12-01 Completed [facility] 00:00:00 [facility] DTAP 2005-12-01 Completed [facility] [facility] HEPATITIS A 2005-12-01 Completed [facility] 00:00:00 [facility] DTAP 2005-12-01 Completed [facility] 00:00:00 [facility] HEPATITIS A 2005-12-01 Completed [facility] 00:00:00 [facility] MMR 2005-10-01 Completed [facility] 00:00:00 [facility] Polio (IPV/OPV) 2005-10-01 Completed [facility] 00:00:00 [facility] MMR 2005-10-01 Completed [facility] 00:00:00 [facility] Polio (IPV/OPV) 2005-10-01 Completed [facility] 00:00:00 [facility] MMR 2005-10-01 Completed [facility] 00:00:00 [facility] Polio (IPV/OPV) 2005-10-01 Completed [facility] 00:00:00 [facility] MMR 2005-10-01 Completed [facility] 00:00:00 [facility] Polio (IPV/OPV) 2005-10-01 Completed [facility] 00:00:00 [facility] MMR 2005-10-01 Completed [facility] 00:00:00 [facility] Polio (IPV/OPV) 2005-10-01 Completed [facility] 00:00:00 [facility] MMR 2005-10-01 Completed [facility] 00:00:00 [facility] Polio (IPV/OPV) 2005-10-01 Completed [facility] 00:00:00 [facility] MMR 2005-10-01 Completed [facility] 00:00:00 [facility] Polio (IPV/OPV) 2005-10-01 Completed [facility] 00:00:00 [facility] MMR 2005-10-01 Completed [facility] 00:00:00 [facility] Polio (IPV/OPV) 2005-10-01 Completed [facility] 00:00:00 [facility] MMR 2005-10-01 Completed [facility] 00:00:00 [facility] Polio (IPV/OPV) 2005-10-01 Completed [facility] 00:00:00 [facility] IPV 2005-10-01 Completed [facility] 00:00:00 [facility] MMR 2005-10-01 Completed [facility] 00:00:00 [facility] Polio (IPV/OPV) 2005-10-01 Completed [facility] 00:00:00 [facility] IPV 2005-10-01 Completed [facility] 00:00:00 [facility] MMR 2005-10-01 Completed [facility] 00:00:00 [facility] Polio (IPV/OPV) 2005-10-01 Completed [facility] 00:00:00 [facility] IPV 2005-10-01 Completed [facility] 00:00:00 [facility] MMR 2005-10-01 Completed [facility] 00:00:00 [facility] Polio (IPV/OPV) 2005-10-01 Completed [facility] 00:00:00 [facility] MMR 2005-10-01 Completed [facility] 00:00:00 [facility] Polio (IPV/OPV) 2005-10-01 Completed [facility] 00:00:00 [facility] MMR 2005-10-01 Completed [facility] 00:00:00 [facility] Polio (IPV/OPV) 2005-10-01 Completed [facility] 00:00:00 [facility] MMR 2005-10-01 Completed [facility] 00:00:00 [facility] Polio (IPV/OPV) 2005-10-01 Completed [facility] 00:00:00 [facility] MMR 2005-10-01 Completed [facility] 00:00:00 [facility] Polio (IPV/OPV) 2005-10-01 Completed [facility] 00:00:00 [facility] MMR 2005-10-01 Completed [facility] 00:00:00 [facility] Polio (IPV/OPV) 2005-10-01 Completed [facility] 00:00:00 [facility] MMR 2005-10-01 Completed [facility] 00:00:00 [facility] Polio (IPV/OPV) 2005-10-01 Completed [facility] 00:00:00 [facility] MMR 2005-10-01 Completed [facility] 00:00:00 [facility] Polio (IPV/OPV) 2005-10-01 Completed [facility] 00:00:00 [facility] MMR 2005-10-01 Completed [facility] 00:00:00 [facility] Polio (IPV/OPV) 2005-10-01 Completed [facility] 00:00:00 [facility] MMR 2005-10-01 Completed [facility] 00:00:00 [facility] Polio (IPV/OPV) 2005-10-01 Completed [facility] 00:00:00 [facility] 2005-10-01 Completed [facility] 00:00:00 [facility] Polio (IPV/OPV) 2005-10-01 Completed [facility] 00:00:00 [facility] 2005-10-01 Completed [facility] 00:00:00 [facility] Polio (IPV/OPV) 2005-10-01 Completed [facility] 00:00:00 [facility] 2005-10-01 Completed [facility] 00:00:00 [facility] Polio (IPV/OPV) 2005-10-01 Completed [facility] 00:00:00 [facility] 2005-10-01 Completed [facility] 00:00:00 [facility] Polio (IPV/OPV) 2005-10-01 Completed [facility] 00:00:00 [facility] 2005-10-01 Completed [facility] 00:00:00 [facility] Polio (IPV/OPV) 2005-10-01 Completed [facility] 00:00:00 [facility] 2005-10-01 Completed [facility] 00:00:00 [facility] Polio (IPV/OPV) 2005-10-01 Completed [facility] 00:00:00 [facility] 2005-10-01 Completed [facility] 00:00:00 [facility] Polio (IPV/OPV) 2005-10-01 Completed [facility] 00:00:00 [facility] 2005-10-01 Completed [facility] 00:00:00 [facility] Polio (IPV/OPV) 2005-10-01 Completed [facility] 00:00:00 [facility] 2005-10-01 Completed [facility] 00:00:00 [facility] Polio (IPV/OPV) 2005-10-01 Completed [facility] 00:00:00 [facility] 2005-10-01 Completed [facility] 00:00:00 [facility] Polio (IPV/OPV) 2005-10-01 Completed [facility] 00:00:00 [facility] 2005-10-01 Completed [facility] 00:00:00 [facility] Polio (IPV/OPV) 2005-10-01 Completed [facility] 00:00:00 [facility] 2005-10-01 Completed [facility] 00:00:00 [facility] Polio (IPV/OPV) 2005-10-01 Completed [facility] 00:00:00 [facility] MMR 2005-10-01 Completed [facility] 00:00:00 [facility] Polio (IPV/OPV) 2005-10-01 Completed [facility] 00:00:00 [facility] DTAP 2005-05-19 Completed [facility] 00:00:00 [facility] HEPATITIS A 2005-05-19 Completed [facility] 00:00:00 [facility] Hep B, Adol or Pedi 2005-05-19 Completed Unive rsity of Dosage 00:00:00 [facility] Pneumococcal 13 2005-05-19 Completed [facility]it y of Conjugate, PCV13 00:00:00 [facility] dical (Prevnar 13) [place] Polio (IPV/OPV) 2005-05-19 Completed [facility] 00:00:00 [facility] DTAP 2005-05-19 Completed [facility] 00:00:00 [facility] HEPATITIS A 2005-05-19 Completed [facility] 00:00:00 [facility] Hep B, Adol or Pedi 2005-05-19 Completed Unive rsity of Dosage 00:00:00 [facility] Pneumococcal 13 2005-05-19 Completed [facility]it [facility] of Conjugate, PCV13 00:00:00 [facility] dical (Prevnar 13) [place] Polio (IPV/OPV) 2005-05-19 Completed [facility] 00:00:00 [facility] DTAP 2005-05-19 Completed [facility] 00:00:00 [facility] HEPATITIS A 2005-05-19 Completed [facility] 00:00:00 [facility] Hep B, Adol or Pedi 2005-05-19 Completed Unive rsity of Dosage 00:00:00 [facility] Pneumococcal 13 2005-05-19 Completed [facility]it [facility] of Conjugate, PCV13 00:00:00 [facility] dical (Prevnar 13) Branch Polio (IPV/OPV) 2005-05-19 Completed [facility] 00:00:00 [facility] DTAP 2005-05-19 Completed [facility] 00:00:00 [facility] HEPATITIS A 2005-05-19 Completed [facility] 00:00:00 [facility] Hep B, Adol or Pedi 2005-05-19 Completed Unive rsity of Dosage 00:00:00 [facility] Pneumococcal 13 2005-05-19 Completed [facility]it [facility] of Conjugate, PCV13 00:00:00 [facility] dical (Prevnar 13) Branch Polio (IPV/OPV) 2005-05-19 Completed [facility] 00:00:00 [facility] DTAP 2005-05-19 Completed [facility] 00:00:00 [facility] HEPATITIS A 2005-05-19 Completed [facility] 00:00:00 [facility] Hep B, Adol or Pedi 2005-05-19 Completed [facility]ive rsity of Dosage 00:00:00 [facility] Pneumococcal 13 2005-05-19 Completed [facility]it [facility] of Conjugate, PCV13 00:00:00 [facility] dical (Prevnar 13) Branch Polio (IPV/OPV) 2005-05-19 Completed [facility] 00:00:00 [facility] DTAP 2005-05-19 Completed [facility] 00:00:00 [facility] HEPATITIS A 2005-05-19 Completed [facility] 00:00:00 [facility] Hep B, Adol or Pedi 2005-05-19 Completed Unive rsity of Dosage 00:00:00 [facility] Pneumococcal 13 2005-05-19 Completed [facility] of Conjugate, PCV13 00:00:00 [facility] dical (Prevnar 13) Branch Polio (IPV/OPV) 2005-05-19 Completed [facility] 00:00:00 [facility] DTAP 2005-05-19 Completed [facility] 00:00:00 [facility] HEPATITIS A 2005-05-19 Completed [facility] 00:00:00 [facility] Hep B, Adol or Pedi 2005-05-19 Completed Unive rsity of Dosage 00:00:00 [facility] Pneumococcal 13 2005-05-19 Completed [facility] of Conjugate, PCV13 00:00:00 [facility] dical (Prevnar 13) Branch Polio (IPV/OPV) 2005-05-19 Completed [facility] 00:00:00 [facility] DTAP 2005-05-19 Completed [facility] of 00:00:00 [facility] HEPATITIS A 2005-05-19 Completed [facility] 00:00:00 [facility] Hep B, Adol or Pedi 2005-05-19 Completed Unive rsity of Dosage 00:00:00 [facility] Pneumococcal 13 2005-05-19 Completed [facility]it [facility] of Conjugate, PCV13 00:00:00 [facility] dical (Prevnar 13) Branch Polio (IPV/OPV) 2005-05-19 Completed [facility] 00:00:00 [facility] DTAP 2005-05-19 Completed [facility] of 00:00:00 [facility] HEPATITIS A 2005-05-19 Completed [facility] 00:00:00 [facility] Hep B, Adol or Pedi 2005-05-19 Completed Unive rsity of Dosage 00:00:00 [facility] Pneumococcal 13 2005-05-19 Completed [facility]it [facility] of Conjugate, PCV13 00:00:00 [facility] dical (Prevnar 13) Branch Polio (IPV/OPV) 2005-05-19 Completed [facility] 00:00:00 [facility] Pneumococcal 7 2005-05-19 Completed [facility] of Conjugate, PCV7 00:00:00 [place] [facility] (Prevnar7) [facility] IPV 2005-05-19 Completed [facility] 00:00:00 [facility] DTAP 2005-05-19 Completed [facility] 00:00:00 [facility] HEPATITIS A 2005-05-19 Completed [facility] 00:00:00 [facility] Hep B, Adol or Pedi 2005-05-19 Completed Unive rsity of Dosage 00:00:00 [facility] Pneumococcal 13 2005-05-19 Completed [facility]it [facility] of Conjugate, PCV13 00:00:00 [facility] dical (Prevnar 13) Branch Polio (IPV/OPV) 2005-05-19 Completed [facility] 00:00:00 [facility] Pneumococcal 7 2005-05-19 Completed [facility] of Conjugate, PCV7 00:00:00 [place] [facility] (Prevnar7) [facility] IPV 2005-05-19 Completed [facility] 00:00:00 [facility] DTAP 2005-05-19 Completed [facility] of 00:00:00 [facility] HEPATITIS A 2005-05-19 Completed [facility] 00:00:00 [facility] Hep B, Adol or Pedi 2005-05-19 Completed Unive rsity of Dosage 00:00:00 [facility] Pneumococcal 13 2005-05-19 Completed Universit [facility] of Conjugate, PCV13 00:00:00 [facility] dical (Prevnar 13) Branch Polio (IPV/OPV) 2005-05-19 Completed [facility] 00:00:00 [facility] Pneumococcal 7 2005-05-19 Completed [facility] of Conjugate, PCV7 00:00:00 [place] [facility] (Prevnar7) [facility] IPV 2005-05-19 Completed [facility] 00:00:00 [facility] DTAP 2005-05-19 Completed [facility] of 00:00:00 [facility] HEPATITIS A 2005-05-19 Completed [facility] 00:00:00 [facility] Hep B, Adol or Pedi 2005-05-19 Completed [facility]ive rsity of Dosage 00:00:00 [facility] Pneumococcal 13 2005-05-19 Completed [facility] Conjugate, PCV13 00:00:00 [place] [facility] (Prevnar 13) [facility] Polio (IPV/OPV) 2005-05-19 Completed [facility] 00:00:00 [facility] DTAP 2005-05-19 Completed [facility] 00:00:00 [facility] HEPATITIS A 2005-05-19 Completed [facility] 00:00:00 [facility] Hep B, Adol or Pedi 2005-05-19 Completed [facility]ive rsity of Dosage 00:00:00 [facility] Pneumococcal 13 2005-05-19 Completed [facility] of Conjugate, PCV13 00:00:00 [facility] (Prevnar 13) Branch Polio (IPV/OPV) 2005-05-19 Completed [facility] 00:00:00 [facility] DTAP 2005-05-19 Completed [facility] 00:00:00 [facility] HEPATITIS A 2005-05-19 Completed [facility] 00:00:00 [facility] Hep B, Adol or Pedi 2005-05-19 Completed Unive rsity of Dosage 00:00:00 [facility] Pneumococcal 13 2005-05-19 Completed [facility] of Conjugate, PCV13 00:00:00 [facility] dical (Prevnar 13) Branch Polio (IPV/OPV) 2005-05-19 Completed [facility] 00:00:00 [facility] DTAP 2005-05-19 Completed [facility] of 00:00:00 [facility] HEPATITIS A 2005-05-19 Completed [facility] 00:00:00 [facility] Hep B, Adol or Pedi 2005-05-19 Completed Unive rsity of Dosage 00:00:00 [facility] Pneumococcal 13 2005-05-19 Completed [facility] of Conjugate, PCV13 00:00:00 [facility] d[facility] (Prevnar 13) Branch Polio (IPV/OPV) 2005-05-19 Completed [facility] 00:00:00 [facility] DTAP 2005-05-19 Completed [facility] of 00:00:00 [facility] HEPATITIS A 2005-05-19 Completed [facility] 00:00:00 [facility] Hep B, Adol or Pedi 2005-05-19 Completed [facility]ive rsity of Dosage 00:00:00 [facility] Pneumococcal 13 2005-05-19 Completed [facility] of Conjugate, PCV13 00:00:00 [facility] d[facility] (Prevnar 13) Branch Polio (IPV/OPV) 2005-05-19 Completed [facility] 00:00:00 [facility] DTAP 2005-05-19 Completed [facility] of 00:00:00 [facility] HEPATITIS A 2005-05-19 Completed [facility] 00:00:00 [facility] Hep B, Adol or Pedi 2005-05-19 Completed [facility]ive rsity of Dosage 00:00:00 [facility] Pneumococcal 13 2005-05-19 Completed [facility] of Conjugate, PCV13 00:00:00 [facility] d[facility] (Prevnar 13) Branch Polio (IPV/OPV) 2005-05-19 Completed [facility] 00:00:00 [facility] DTAP 2005-05-19 Completed [facility] of 00:00:00 [facility] HEPATITIS A 2005-05-19 Completed [facility] 00:00:00 [facility] Hep B, Adol or Pedi 2005-05-19 Completed [facility]ive rsity of Dosage 00:00:00 [facility] Pneumococcal 13 2005-05-19 Completed [facility] of Conjugate, PCV13 00:00:00 [facility] d[facility] (Prevnar 13) Branch Polio (IPV/OPV) 2005-05-19 Completed [facility] 00:00:00 [facility] DTAP 2005-05-19 Completed [facility] of 00:00:00 [facility] HEPATITIS A 2005-05-19 Completed [facility] 00:00:00 [facility] Hep B, Adol or Pedi 2005-05-19 Completed [facility]ive rsity of Dosage 00:00:00 [facility] Pneumococcal 13 2005-05-19 Completed [facility] of Conjugate, PCV13 00:00:00 [facility] (Prevnar 13) Branch Polio (IPV/OPV) 2005-05-19 Completed [facility] 00:00:00 [facility] DTAP 2005-05-19 Completed [facility] of 00:00:00 [facility] HEPATITIS A 2005-05-19 Completed [facility] 00:00:00 [facility] Hep B, Adol or Pedi 2005-05-19 Completed [facility]ive rs[facility] of Dosage 00:00:00 [facility] Pneumococcal 13 2005-05-19 Completed [facility] of Conjugate, PCV13 00:00:00 [facility] (Prevnar 13) Branch Polio (IPV/OPV) 2005-05-19 Completed [facility] 00:00:00 [facility] DTAP 2005-05-19 Completed [facility] of 00:00:00 [facility] HEPATITIS A 2005-05-19 Completed [facility] 00:00:00 [facility] Hep B, Adol or Pedi 2005-05-19 Completed [facility]ive rs[facility] of Dosage 00:00:00 [facility] Pneumococcal 13 2005-05-19 Completed [facility] of Conjugate, PCV13 00:00:00 [facility] (Prevnar 13) Branch Polio (IPV/OPV) 2005-05-19 Completed [facility] 00:00:00 [facility] DTAP 2005-05-19 Completed [facility] of 00:00:00 [facility] HEPATITIS A 2005-05-19 Completed [facility] 00:00:00 [facility] Hep B, Adol or Pedi 2005-05-19 Completed [facility]ive rsity of Dosage 00:00:00 [facility] Pneumococcal 13 2005-05-19 Completed [facility] of Conjugate, PCV13 00:00:00 [facility] (Prevnar 13) Branch Polio (IPV/OPV) 2005-05-19 Completed [facility] 00:00:00 [facility] DTAP 2005-05-19 Completed [facility] of 00:00:00 [facility] HEPATITIS A 2005-05-19 Completed [facility] 00:00:00 [facility] Hep B, Adol or Pedi 2005-05-19 Completed [facility]ive rs[facility] of Dosage 00:00:00 [facility] Pneumococcal 13 2005-05-19 Completed [facility] of Conjugate, PCV13 00:00:00 [facility] (Prevnar 13) Branch Polio (IPV/OPV) 2005-05-19 Completed [facility] 00:00:00 [facility] DTAP 2005-05-19 Completed [facility] of 00:00:00 [facility] HEPATITIS A 2005-05-19 Completed [facility] 00:00:00 [facility] Hep B, Adol or Pedi 2005-05-19 Completed [facility]ive rsity of Dosage 00:00:00 [facility] Pneumococcal 13 2005-05-19 Completed [facility] of Conjugate, PCV13 00:00:00 [facility] (Prevnar 13) Branch Polio (IPV/OPV) 2005-05-19 Completed [facility] 00:00:00 [facility] DTAP 2005-05-19 Completed [facility] of 00:00:00 [facility] HEPATITIS A 2005-05-19 Completed [facility] 00:00:00 [facility] Hep B, Adol or Pedi 2005-05-19 Completed Unive rsity of Dosage 00:00:00 [facility] Pneumococcal 13 2005-05-19 Completed [facility] y of Conjugate, PCV13 00:00:00 [facility] (Prevnar 13) Branch Polio (IPV/OPV) 2005-05-19 Completed [facility] 00:00:00 [facility] DTAP 2005-05-19 Completed [facility] of 00:00:00 [facility] HEPATITIS A 2005-05-19 Completed [facility] 00:00:00 [facility] Hep B, Adol or Pedi 2005-05-19 Completed [facility]ive rsity of Dosage 00:00:00 [facility] Pneumococcal 13 2005-05-19 Completed [facility] of Conjugate, PCV13 00:00:00 [facility] (Prevnar 13) Branch Polio (IPV/OPV) 2005-05-19 Completed [facility] 00:00:00 [facility] DTAP 2005-05-19 Completed [facility] of 00:00:00 [facility] HEPATITIS A 2005-05-19 Completed [facility] 00:00:00 [facility] Hep B, Adol or Pedi 2005-05-19 Completed [facility]ive rsity of Dosage 00:00:00 [facility] Pneumococcal 13 2005-05-19 Completed [facility] of Conjugate, PCV13 00:00:00 [facility] (Prevnar 13) Branch Polio (IPV/OPV) 2005-05-19 Completed [facility] 00:00:00 [facility] DTAP 2005-05-19 Completed [facility] of 00:00:00 [facility] HEPATITIS A 2005-05-19 Completed [facility] 00:00:00 [facility] Hep B, Adol or Pedi 2005-05-19 Completed [facility]ive rs[facility] of Dosage 00:00:00 [facility] Pneumococcal 13 2005-05-19 Completed [facility] of Conjugate, PCV13 00:00:00 [facility] (Prevnar 13) Branch Polio (IPV/OPV) 2005-05-19 Completed [facility] 00:00:00 [facility] DTAP 2005-05-19 Completed [facility] of 00:00:00 [facility] HEPATITIS A 2005-05-19 Completed [facility] 00:00:00 [facility] Hep B, Adol or Pedi 2005-05-19 Completed [facility]ive rs[facility] of Dosage 00:00:00 [facility] Pneumococcal 13 2005-05-19 Completed [facility] of Conjugate, PCV13 00:00:00 [facility] dicpr (Prevnar 13) Branch Polio (IPV/OPV) 2005-05-19 Completed [facility] 00:00:00 [facility] DTAP 2005-05-19 Completed [facility] of 00:00:00 [facility] HEPATITIS A 2005-05-19 Completed [facility] 00:00:00 [facility] Hep B, Adol or Pedi 2005-05-19 Completed [facility]ive rs[facility] of Dosage 00:00:00 [facility] Pneumococcal 13 2005-05-19 Completed [facility] of Conjugate, PCV13 00:00:00 [facility] (Prevnar 13) Branch Polio (IPV/OPV) 2005-05-19 Completed [facility] 00:00:00 [facility] DTAP 2005-05-19 Completed [facility] of 00:00:00 [facility] HEPATITIS A 2005-05-19 Completed [facility] of 00:00:00 [facility] Hep B, Adol or Pedi 2005-05-19 Completed Unive rsity of Dosage 00:00:00 [facility] Pneumococcal 13 2005-05-19 Completed [facility] y of Conjugate, PCV13 00:00:00 [facility] (Prevnar 13) Branch Polio (IPV/OPV) 2005-05-19 Completed [facility] 00:00:00 [facility] DTAP 2005-05-19 Completed [facility] of 00:00:00 [facility] HEPATITIS A 2005-05-19 Completed [facility] of 00:00:00 [facility] Hep B, Adol or Pedi 2005-05-19 Completed [facility]ive rs[facility] of Dosage 00:00:00 [facility] Pneumococcal 13 2005-05-19 Completed [facility] of Conjugate, PCV13 00:00:00 [facility] (Prevnar 13) Branch Polio (IPV/OPV) 2005-05-19 Completed [facility] 00:00:00 [facility] DTAP 2005-05-19 Completed [facility] of 00:00:00 [facility] HEPATITIS A 2005-05-19 Completed [facility] 00:00:00 [facility] Hep B, Adol or Pedi 2005-05-19 Completed [facility] rs[facility] of Dosage 00:00:00 [facility] Pneumococcal 13 2005-05-19 Completed [facility] of Conjugate, PCV13 00:00:00 [facility] (Prevnar 13) Branch Polio (IPV/OPV) 2005-05-19 Completed [facility] 00:00:00 [facility] DTAP 2005-05-19 Completed [facility] of 00:00:00 [facility] HEPATITIS A 2005-05-19 Completed [facility] 00:00:00 [facility] Hep B, Adol or Pedi 2005-05-19 Completed [facility] rs[facility] of Dosage 00:00:00 [facility] Pneumococcal 13 2005-05-19 Completed [facility] of Conjugate, PCV13 00:00:00 [facility] (Prevnar 13) Branch Polio (IPV/OPV) 2005-05-19 Completed [facility] 00:00:00 [facility] DTAP 2002-10-05 Completed [facility] 00:00:00 [facility] HIB 4 Dose Schedule 2002-10-05 Completed Unive rsity of 00:00:00 [facility] Hep B, Adol or Pedi 2002-10-05 Completed [facility]ive [facility] of Dosage 00:00:00 [facility] MMR 2002-10-05 Completed [facility] 00:00:00 [facility] [place] Polio (IPV/OPV) 2002-10-05 Completed [facility] 00:00[facility]00 [facility] Varicella 2002-10-05 Completed [facility] (varivax)(chicken 00:00:00 [place] [facility] DTAP 2002-10-05 Completed [facility] 00:00:00 [facility] HIB 4 Dose Schedule 2002-10-05 Completed [facility] 00:00:00 [facility] Hep B, Adol or Pedi 2002-10-05 Completed [facility] Dosage 00:00:00 [facility] MMR 2002-10-05 Completed [facility] 00:00:00 [facility] Polio (IPV/OPV) 2002-10-05 Completed [facility] 00:00:00 [facility] Varicella 2002-10-05 Completed [facility] (varivax)(chicken 00:00:00 [place] [facility] DTAP 2002-10-05 Completed [facility] 00:00:00 [facility] HIB 4 Dose Schedule 2002-10-05 Completed [facility] 00:00:00 [facility] Hep B, Adol or Pedi 2002-10-05 Completed [facility] Dosage 00:00:00 [facility] MMR 2002-10-05 Completed [facility] 00:00:00 [facility] Polio (IPV/OPV) 2002-10-05 Completed [facility] 00:00:00 [facility] Varicella 2002-10-05 Completed [facility] (varivax)(chicken 00:00:00 [place] [facility] DTAP 2002-10-05 Completed [facility] 00:00:00 [facility] HIB 4 Dose Schedule 2002-10-05 Completed [facility] 00:00:00 [facility] Hep B, Adol or Pedi 2002-10-05 Completed [facility] Dosage 00:00:00 [facility] MMR 2002-10-05 Completed [facility] 00:00:00 [facility] Polio (IPV/OPV) 2002-10-05 Completed [facility] 00:00:00 [facility] Varicella 2002-10-05 Completed [facility] (varivax)(chicken 00:00:00 [place] [facility] DTAP 2002-10-05 Completed [facility] 00:00:00 [facility] HIB 4 Dose Schedule 2002-10-05 Completed [facility] 00:00:00 [facility] Hep B, Adol or Pedi 2002-10-05 Completed [facility] Dosage 00:00:00 [facility] MMR 2002-10-05 Completed [facility] 00:00:00 [facility] Polio (IPV/OPV) 2002-10-05 Completed [facility] 00:00:00 [facility] Varicella 2002-10-05 Completed [facility] (varivax)(chicken 00:00:00 [place] [facility] DTAP 2002-10-05 Completed [facility] 00:00:00 [facility] HIB 4 Dose Schedule 2002-10-05 Completed [facility] 00:00:00 [facility] Hep B, Adol or Pedi 2002-10-05 Completed [facility] Dosage 00:00:00 [facility] MMR 2002-10-05 Completed [facility] 00:00:00 [facility] Polio (IPV/OPV) 2002-10-05 Completed [facility] 00:00:00 [facility] Varicella 2002-10-05 Completed [facility] (varivax)(chicken 00:00:00 [place] [facility] DTAP 2002-10-05 Completed [facility] 00:00:00 [facility] HIB 4 Dose Schedule 2002-10-05 Completed [facility] 00:00:00 [facility] Hep B, Adol or Pedi 2002-10-05 Completed [facility] Dosage 00:00:00 [facility] MMR 2002-10-05 Completed [facility] 00:00:00 [facility] Polio (IPV/OPV) 2002-10-05 Completed [facility] 00:00:00 [facility] Varicella 2002-10-05 Completed [facility] (varivax)(chicken 00:00:00 [place] [facility] DTAP 2002-10-05 Completed [facility] 00:00:00 [facility] HIB 4 Dose Schedule 2002-10-05 Completed [facility] 00:00:00 [facility] Hep B, Adol or Pedi 2002-10-05 Completed [facility] Dosage 00:00:00 [facility] MMR 2002-10-05 Completed [facility] 00:00:00 [facility] Polio (IPV/OPV) 2002-10-05 Completed [facility] 00:00:00 [facility] Varicella 2002-10-05 Completed [facility] (varivax)(chicken 00:00:00 [place] [facility] DTAP 2002-10-05 Completed [facility] 00:00:00 [facility] HIB 4 Dose Schedule 2002-10-05 Completed [facility] 00:00:00 [facility] Hep B, Adol or Pedi 2002-10-05 Completed [facility] Dosage 00:00:00 [facility] MMR 2002-10-05 Completed [facility] 00:00:00 [facility] Polio (IPV/OPV) 2002-10-05 Completed [facility] 00:00:00 [facility] Varicella 2002-10-05 Completed [facility] (varivax)(chicken 00:00:00 [place] [facility] IPV 2002-10-05 Completed [facility] 00:00:00 [facility] DTAP 2002-10-05 Completed [facility] 00:00:00 [facility] HIB 4 Dose Schedule 2002-10-05 Completed [facility] 00:00:00 [facility] Hep B, Adol or Pedi 2002-10-05 Completed [facility] Dosage 00:00:00 [facility] MMR 2002-10-05 Completed [facility] 00:00:00 [facility] Polio (IPV/OPV) 2002-10-05 Completed [facility] 00:00:00 [facility] Varicella 2002-10-05 Completed [facility] (varivax)(chicken 00:00:00 [place] [facility] IPV 2002-10-05 Completed [facility] 00:00:00 [facility] DTAP 2002-10-05 Completed [facility] 00:00:00 [facility] HIB 4 Dose Schedule 2002-10-05 Completed [facility] 00:00:00 [facility] Hep B, Adol or Pedi 2002-10-05 Completed [facility] Dosage 00:00:00 [facility] MMR 2002-10-05 Completed [facility] 00:00:00 [facility] Polio (IPV/OPV) 2002-10-05 Completed [facility] 00:00:00 [facility] Varicella 2002-10-05 Completed [facility] (varivax)(chicken 00:00:00 [place] [facility] IPV 2002-10-05 Completed [facility] 00:00:00 [facility] DTAP 2002-10-05 Completed [facility] 00:00:00 [facility] HIB 4 Dose Schedule 2002-10-05 Completed [facility] 00:00:00 [facility] Hep B, Adol or Pedi 2002-10-05 Completed [facility] Dosage 00:00:00 [facility] MMR 2002-10-05 Completed [facility] 00:00:00 [facility] Polio (IPV/OPV) 2002-10-05 Completed [facility] 00:00:00 [facility] Varicella 2002-10-05 Completed [facility] (varivax)(chicken 00:00:00 [place] [facility] DTAP 2002-10-05 Completed [facility] 00:00:00 [facility] HIB 4 Dose Schedule 2002-10-05 Completed [facility] 00:00:00 [facility] Hep B, Adol or Pedi 2002-10-05 Completed [facility] Dosage 00:00:00 [facility] MMR 2002-10-05 Completed [facility] 00:00:00 [facility] Polio (IPV/OPV) 2002-10-05 Completed [facility] 00:00:00 [facility] Varicella 2002-10-05 Completed [facility] (varivax)(chicken 00:00:00 [place] [facility] DTAP 2002-10-05 Completed [facility] 00:00:00 [facility] HIB 4 Dose Schedule 2002-10-05 Completed [facility] 00:00:00 [facility] Hep B, Adol or Pedi 2002-10-05 Completed [facility] Dosage 00:00:00 [facility] MMR 2002-10-05 Completed [facility] 00:00:00 [facility] Polio (IPV/OPV) 2002-10-05 Completed [facility] 00:00:00 [facility] Varicella 2002-10-05 Completed [facility] (varivax)(chicken 00:00:00 [place] [facility] DTAP 2002-10-05 Completed [facility] 00:00:00 [facility] HIB 4 Dose Schedule 2002-10-05 Completed [facility] 00:00:00 [facility] Hep B, Adol or Pedi 2002-10-05 Completed [facility] Dosage 00:00:00 [facility] MMR 2002-10-05 Completed [facility] 00:00:00 [facility] Polio (IPV/OPV) 2002-10-05 Completed [facility] 00:00:00 [facility] Varicella 2002-10-05 Completed [facility] (varivax)(chicken 00:00:00 [place] [facility] DTAP 2002-10-05 Completed [facility] 00:00:00 [facility] HIB 4 Dose Schedule 2002-10-05 Completed [facility] 00:00:00 [facility] Hep B, Adol or Pedi 2002-10-05 Completed [facility] Dosage 00:00:00 [facility] MMR 2002-10-05 Completed [facility] 00:00:00 [facility] Polio (IPV/OPV) 2002-10-05 Completed [facility] 00:00:00 [facility] Varicella 2002-10-05 Completed [facility] (varivax)(chicken 00:00:00 [place] [facility] DTAP 2002-10-05 Completed [facility] 00:00:00 [facility] HIB 4 Dose Schedule 2002-10-05 Completed [facility] 00:00:00 [facility] Hep B, Adol or Pedi 2002-10-05 Completed [facility] Dosage 00:00:00 [facility] MMR 2002-10-05 Completed [facility] 00:00:00 [facility] Polio (IPV/OPV) 2002-10-05 Completed [facility] 00:00:00 [facility] Varicella 2002-10-05 Completed [facility] (varivax)(chicken 00:00:00 [place] [facility] DTAP 2002-10-05 Completed [facility] 00:00:00 [facility] HIB 4 Dose Schedule 2002-10-05 Completed [facility] 00:00:00 [facility] Hep B, Adol or Pedi 2002-10-05 Completed [facility] Dosage 00:00:00 [facility] MMR 2002-10-05 Completed [facility] 00:00:00 [facility] Polio (IPV/OPV) 2002-10-05 Completed [facility] 00:00:00 [facility] Varicella 2002-10-05 Completed [facility] (varivax)(chicken 00:00:00 [place] [facility] DTAP 2002-10-05 Completed [facility] 00:00:00 [facility] HIB 4 Dose Schedule 2002-10-05 Completed [facility] 00:00:00 [facility] Hep B, Adol or Pedi 2002-10-05 Completed [facility] Dosage 00:00:00 [facility] MMR 2002-10-05 Completed [facility] 00:00:00 [facility] Polio (IPV/OPV) 2002-10-05 Completed [facility] 00:00:00 [facility] Varicella 2002-10-05 Completed [facility] (varivax)(chicken 00:00:00 [place] [facility] DTAP 2002-10-05 Completed [facility] 00:00:00 [facility] HIB 4 Dose Schedule 2002-10-05 Completed [facility] 00:00:00 [facility] Hep B, Adol or Pedi 2002-10-05 Completed [facility] Dosage 00:00:00 [facility] MMR 2002-10-05 Completed [facility] 00:00:00 [facility] Polio (IPV/OPV) 2002-10-05 Completed [facility] 00:00:00 [facility] Varicella 2002-10-05 Completed [facility] (varivax)(chicken 00:00:00 [place] [facility] DTAP 2002-10-05 Completed [facility] 00:00:00 [facility] HIB 4 Dose Schedule 2002-10-05 Completed [facility] 00:00:00 [facility] Hep B, Adol or Pedi 2002-10-05 Completed [facility] Dosage 00:00:00 [facility] MMR 2002-10-05 Completed [facility] 00:00:00 [facility] Polio (IPV/OPV) 2002-10-05 Completed [facility] 00:00:00 [facility] Varicella 2002-10-05 Completed [facility] (varivax)([facility]icken 00:00:00 [place] [facility] DTAP 2002-10-05 Completed [facility] 00:00:00 [facility] HIB 4 Dose Schedule 2002-10-05 Completed [facility] 00:00:00 [facility] Hep B, Adol or Pedi 2002-10-05 Completed [facility] Dosage 00:00:00 [facility] MMR 2002-10-05 Completed [facility] 00:00:00 [facility] Polio (IPV/OPV) 2002-10-05 Completed [facility] 00:00:00 [facility] Varicella 2002-10-05 Completed [facility] (varivax)(chicken 00:00:00 [place] [facility] DTAP 2002-10-05 Completed [facility] 00:00:00 [facility] HIB 4 Dose Schedule 2002-10-05 Completed [facility] 00:00:00 [facility] Hep B, Adol or Pedi 2002-10-05 Completed [facility] Dosage 00:00:00 [facility] MMR 2002-10-05 Completed [facility] 00:00:00 [facility] Polio (IPV/OPV) 2002-10-05 Completed [facility] 00:00:00 [facility] Varicella 2002-10-05 Completed [facility] (varivax)(chicken 00:00:00 [place] [facility] DTAP 2002-10-05 Completed [facility] 00:00:00 [facility] HIB 4 Dose Schedule 2002-10-05 Completed [facility] 00:00:00 [facility] Hep B, Adol or Pedi 2002-10-05 Completed [facility] Dosage 00:00:00 [facility] MMR 2002-10-05 Completed [facility] 00:00:00 [facility] Polio (IPV/OPV) 2002-10-05 Completed [facility] 00:00:00 [facility] Varicella 2002-10-05 Completed [facility] (varivax)(chicken 00:00:00 [place] [facility] DTAP 2002-10-05 Completed [facility] 00:00:00 [facility] HIB 4 Dose Schedule 2002-10-05 Completed [facility] 00:00:00 [facility] Hep B, Adol or Pedi 2002-10-05 Completed [facility] Dosage 00:00:00 [facility] MMR 2002-10-05 Completed [facility] 00:00:00 [facility] Polio (IPV/OPV) 2002-10-05 Completed [facility] 00:00:00 [facility] Varicella 2002-10-05 Completed [facility] (varivax)(chicken 00:00:00 [place] [facility] DTAP 2002-10-05 Completed [facility] 00:00:00 [facility] HIB 4 Dose Schedule 2002-10-05 Completed [facility] 00:00:00 [facility] Hep B, Adol or Pedi 2002-10-05 Completed [facility] Dosage 00:00:00 [facility] MMR 2002-10-05 Completed [facility] 00:00:00 [facility] Polio (IPV/OPV) 2002-10-05 Completed [facility] 00:00:00 [facility] Varicella 2002-10-05 Completed [facility] (varivax)(chicken 00:00:00 [place] [facility] DTAP 2002-10-05 Completed [facility] 00:00:00 [facility] HIB 4 Dose Schedule 2002-10-05 Completed [facility] 00:00:00 [facility] Hep B, Adol or Pedi 2002-10-05 Completed [facility] Dosage 00:00:00 [facility] MMR 2002-10-05 Completed [facility] 00:00:00 [facility] Polio (IPV/OPV) 2002-10-05 Completed [facility] 00:00:00 [facility] Varicella 2002-10-05 Completed [facility] (varivax)(chicken 00:00:00 [place] [facility] DTAP 2002-10-05 Completed [facility] 00:00:00 [facility] HIB 4 Dose Schedule 2002-10-05 Completed [facility] 00:00:00 [facility] Hep B, Adol or Pedi 2002-10-05 Completed [facility] Dosage 00:00:00 [facility] MMR 2002-10-05 Completed [facility] 00:00:00 [facility] Polio (IPV/OPV) 2002-10-05 Completed [facility] 00:00:00 [facility] Varicella 2002-10-05 Completed [facility] (varivax)(chicken 00:00:00 [place] [facility] DTAP 2002-10-05 Completed [facility] 00:00:00 [facility] HIB 4 Dose Schedule 2002-10-05 Completed [facility] 00:00:00 [facility] Hep B, Adol or Pedi 2002-10-05 Completed [facility] Dosage 00:00:00 [facility] MMR 2002-10-05 Completed [facility] 00:00:00 [facility] Polio (IPV/OPV) 2002-10-05 Completed [facility] 00:00:00 [facility] Varicella 2002-10-05 Completed [facility] (varivax)(chicken 00:00:00 [place] [facility] DTAP 2002-10-05 Completed [facility] 00:00:00 [facility] HIB 4 Dose Schedule 2002-10-05 Completed [facility] 00:00:00 [facility] Hep B, Adol or Pedi 2002-10-05 Completed [facility] Dosage 00:00:00 [facility] MMR 2002-10-05 Completed [facility] 00:00:00 [facility] Polio (IPV/OPV) 2002-10-05 Completed [facility] 00:00:00 [facility] Varicella 2002-10-05 Completed [facility] (varivax)([facility]icken 00:00:00 [place] [facility] DTAP 2002-10-05 Completed [facility] 00:00:00 [facility] HIB 4 Dose Schedule 2002-10-05 Completed [facility] 00:00:00 [facility] Hep B, Adol or Pedi 2002-10-05 Completed [facility] Dosage 00:00:00 [facility] MMR 2002-10-05 Completed [facility] 00:00:00 [facility] Polio (IPV/OPV) 2002-10-05 Completed [facility] 00:00:00 [facility] Varicella 2002-10-05 Completed [facility] (varivax)([place]icken 00:00:00 [place] [facility] DTAP 2002-10-05 Completed [facility] 00:00:00 [facility] HIB 4 Dose Schedule 2002-10-05 Completed [facility] 00:00:00 [facility] Hep B, Adol or Pedi 2002-10-05 Completed [facility] Dosage 00:00:00 [facility] MMR 2002-10-05 Completed [facility] 00:00:00 [facility] Polio (IPV/OPV) 2002-10-05 Completed [facility] 00:00:00 [facility] Varicella 2002-10-05 Completed [facility] (varivax)(chicken 00:00:00 [place] [facility] DTAP 2002-10-05 Completed [facility] 00:00:00 [facility] HIB 4 Dose Schedule 2002-10-05 Completed [facility] 00:00:00 [facility] Hep B, Adol or Pedi 2002-10-05 Completed [facility] Dosage 00:00:00 [facility] MMR 2002-10-05 Completed [facility] 00:00:00 [facility] Polio (IPV/OPV) 2002-10-05 Completed [facility] 00:00:00 [facility] Varicella 2002-10-05 Completed [facility] (varivax)([place]icken 00:00:00 [place] [facility] DTAP 2002-10-05 Completed [facility] 00:00:00 [facility] HIB 4 Dose Schedule 2002-10-05 Completed [facility] 00:00:00 [facility] Hep B, Adol or Pedi 2002-10-05 Completed [facility] Dosage 00:00:00 [facility] MMR 2002-10-05 Completed [facility] 00:00:00 [facility] Polio (IPV/OPV) 2002-10-05 Completed [facility] 00:00:00 [facility] Varicella 2002-10-05 Completed [facility] (varivax)(chicken 00:00:00 [place] [facility] DTAP 2001 Completed [facility] 00:00:00 [facility] HIB 4 Dose Schedule 2001 Completed [facility] 00:00:00 [facility] Hep B, Adol or Pedi 2001 Completed [facility] Dosage 00:00:00 [facility] Polio (IPV/OPV) 2001 Completed [facility] 00:00:00 [facility] DTAP 2001 Completed [facility] 00:00:00 [facility] HIB 4 Dose Schedule 2001 Completed [facility] 00:00:00 [facility] Hep B, Adol or Pedi 2001 Completed [facility] Dosage 00:00:00 [facility] Polio (IPV/OPV) 2001 Completed [facility] 00:00:00 [facility] DTAP 2001 Completed [facility] 00:00:00 [facility] HIB 4 Dose Schedule 2001 Completed [facility] 00:00:00 [facility] Hep B, Adol or Pedi 2001 Completed [facility] Dosage 00:00:00 [facility] Polio (IPV/OPV) 2001 Completed [facility] 00:00:00 [facility] DTAP 2001 Completed [facility] 00:00:00 [facility] HIB 4 Dose Schedule 2001 Completed [facility] 00:00:00 [facility] Hep B, Adol or Pedi 2001 Completed [facility] Dosage 00:00:00 [facility] Polio (IPV/OPV) 2001 Completed [facility] 00:00:00 [facility] DTAP 2001 Completed [facility] 00:00:00 [facility] HIB 4 Dose Schedule 2001 Completed [facility] 00:00:00 [facility] Hep B, Adol or Pedi 2001 Completed [facility] Dosage 00:00:00 [facility] Polio (IPV/OPV) 2001 Completed [facility] 00:00:00 [facility] DTAP 2001 Completed [facility] 00:00:00 [facility] HIB 4 Dose Schedule 2001 Completed [facility] 00:00:00 [facility] Hep B, Adol or Pedi 2001 Completed [facility] Dosage 00:00:00 [facility] Polio (IPV/OPV) 2001 Completed [facility] 00:00:00 [facility] DTAP 2001 Completed [facility] 00:00:00 [facility] HIB 4 Dose Schedule 2001 Completed [facility] 00:00:00 [facility] Hep B, Adol or Pedi 2001 Completed [facility] Dosage 00:00:00 [facility] Polio (IPV/OPV) 2001 Completed [facility] 00:00:00 [facility] DTAP 2001 Completed [facility] 00:00:00 [facility] HIB 4 Dose Schedule 2001 Completed [facility] 00:00:00 [facility] Hep B, Adol or Pedi 2001 Completed [facility] Dosage 00:00:00 [facility] Polio (IPV/OPV) 2001 Completed [facility] 00:00:00 [facility] DTAP 2001 Completed [facility] 00:00:00 [facility] HIB 4 Dose Schedule 2001 Completed [facility] 00:00:00 [facility] Hep B, Adol or Pedi 2001 Completed [facility] Dosage 00:00:00 [facility] Polio (IPV/OPV) 2001 Completed [facility] 00:00:00 [facility] IPV 2001 Completed [facility] 00:00:00 [facility] DTAP 2001 Completed [facility] 00:00:00 [facility] HIB 4 Dose Schedule 2001 Completed [facility] 00:00:00 [facility] Hep B, Adol or Pedi 2001 Completed [facility] Dosage 00:00:00 [facility] Polio (IPV/OPV) 2001 Completed [facility] 00:00:00 [facility] IPV 2001 Completed [facility] 00:00:00 [facility] DTAP 2001 Completed [facility] 00:00:00 [facility] HIB 4 Dose Schedule 2001 Completed [facility] 00:00:00 [facility] Hep B, Adol or Pedi 2001 Completed [facility] Dosage 00:00:00 [facility] Polio (IPV/OPV) 2001 Completed [facility] 00:00:00 [facility] IPV 2001 Completed [facility] 00:00:00 [facility] DTAP 2001 Completed [facility] 00:00:00 [facility] HIB 4 Dose Schedule 2001 Completed [facility] 00:00:00 [facility] Hep B, Adol or Pedi 2001 Completed [facility] Dosage 00:00:00 [facility] Polio (IPV/OPV) 2001 Completed [facility] 00:00:00 [facility] DTAP 2001 Completed [facility] 00:00:00 [facility] HIB 4 Dose Schedule 2001 Completed [facility] 00:00:00 [facility] Hep B, Adol or Pedi 2001 Completed [facility] Dosage 00:00:00 [facility] Polio (IPV/OPV) 2001 Completed [facility] 00:00:00 [facility] DTAP 2001 Completed [facility] 00:00:00 [facility] HIB 4 Dose Schedule 2001 Completed [facility] 00:00:00 [facility] Hep B, Adol or Pedi 2001 Completed [facility] Dosage 00:00:00 [facility] Polio (IPV/OPV) 2001 Completed [facility] 00:00:00 [facility] DTAP 2001 Completed [facility] 00:00:00 [facility] HIB 4 Dose Schedule 2001 Completed [facility] 00:00:00 [facility] Hep B, Adol or Pedi 2001 Completed [facility] Dosage 00:00:00 [facility] Polio (IPV/OPV) 2001 Completed [facility] 00:00:00 [facility] DTAP 2001 Completed [facility] 00:00:00 [facility] HIB 4 Dose Schedule 2001 Completed [facility] 00:00:00 [facility] Hep B, Adol or Pedi 2001 Completed [facility] Dosage 00:00:00 [facility] Polio (IPV/OPV) 2001 Completed [facility] 00:00:00 [facility] DTAP 2001 Completed [facility] 00:00:00 [facility] HIB 4 Dose Schedule 2001 Completed [facility] 00:00:00 [facility] Hep B, Adol or Pedi 2001 Completed [facility] Dosage 00:00:00 [facility] Polio (IPV/OPV) 2001 Completed [facility] 00:00:00 [facility] DTAP 2001 Completed [facility] 00:00:00 [facility] HIB 4 Dose Schedule 2001 Completed [facility] 00:00:00 [facility] Hep B, Adol or Pedi 2001 Completed [facility] Dosage 00:00:00 [facility] Polio (IPV/OPV) 2001 Completed [facility] 00:00:00 [facility] DTAP 2001 Completed [facility] 00:00:00 [facility] HIB 4 Dose Schedule 2001 Completed [facility] 00:00:00 [facility] Hep B, Adol or Pedi 2001 Completed [facility] Dosage 00:00:00 [facility] Polio (IPV/OPV) 2001 Completed [facility] 00:00:00 [facility] DTAP 2001 Completed [facility] 00:00:00 [facility] HIB 4 Dose Schedule 2001 Completed [facility] 00:00:00 [facility] Hep B, Adol or Pedi 2001 Completed [facility] Dosage 00:00:00 [facility] Polio (IPV/OPV) 2001 Completed [facility] 00:00:00 [facility] DTAP 2001 Completed [facility] 00:00:00 [facility] HIB 4 Dose Schedule 2001 Completed [facility] 00:00:00 [facility] Hep B, Adol or Pedi 2001 Completed [facility] Dosage 00:00:00 [facility] Polio (IPV/OPV) 2001 Completed [facility] 00:00:00 [facility] DTAP 2001 Completed [facility] 00:00:00 [facility] HIB 4 Dose Schedule 2001 Completed [facility] 00:00:00 [facility] Hep B, Adol or Pedi 2001 Completed [facility] Dosage 00:00:00 [facility] Polio (IPV/OPV) 2001 Completed [facility] 00:00:00 [facility] DTAP 2001 Completed [facility] 00:00:00 [facility] HIB 4 Dose Schedule 2001 Completed [facility] 00:00:00 [facility] Hep B, Adol or Pedi 2001 Completed [facility] Dosage 00:00:00 [facility] Polio (IPV/OPV) 2001 Completed [facility] 00:00:00 [facility] DTAP 2001 Completed [facility] 00:00:00 [facility] HIB 4 Dose Schedule 2001 Completed [facility] 00:00:00 [facility] Hep B, Adol or Pedi 2001 Completed [facility] Dosage 00:00:00 [facility] Polio (IPV/OPV) 2001 Completed [facility] 00:00:00 [facility] DTAP 2001 Completed [facility] 00:00:00 [facility] HIB 4 Dose Schedule 2001 Completed [facility] 00:00:00 [facility] Hep B, Adol or Pedi 2001 Completed [facility] Dosage 00:00:00 [facility] Polio (IPV/OPV) 2001 Completed [facility] 00:00:00 [facility] DTAP 2001 Completed [facility] 00:00:00 [facility] HIB 4 Dose Schedule 2001 Completed [facility] 00:00:00 [facility] Hep B, Adol or Pedi 2001 Completed [facility] Dosage 00:00:00 [facility] Polio (IPV/OPV) 2001 Completed [facility] 00:00:00 [facility] DTAP 2001 Completed [facility] 00:00:00 [facility] HIB 4 Dose Schedule 2001 Completed [facility] 00:00:00 [facility] Hep B, Adol or Pedi 2001 Completed [facility] Dosage 00:00:00 [facility] Polio (IPV/OPV) 2001 Completed [facility] 00:00:00 [facility] DTAP 2001 Completed [facility] 00:00:00 [facility] HIB 4 Dose Schedule 2001 Completed [facility] 00:00:00 [facility] Hep B, Adol or Pedi 2001 Completed [facility] Dosage 00:00:00 [facility] Polio (IPV/OPV) 2001 Completed [facility] 00:00:00 [facility] DTAP 2001 Completed [facility] 00:00:00 [facility] HIB 4 Dose Schedule 2001 Completed [facility] 00:00:00 [facility] Hep B, Adol or Pedi 2001 Completed [facility] Dosage 00:00:00 [facility] Polio (IPV/OPV) 2001 Completed [facility] 00:00:00 [facility] DTAP 2001 Completed [facility] 00:00:00 [facility] HIB 4 Dose Schedule 2001 Completed [facility] 00:00:00 [facility] Hep B, Adol or Pedi 2001 Completed [facility] Dosage 00:00:00 [facility] Polio (IPV/OPV) 2001 Completed [facility] 00:00:00 [facility] DTAP 2001 Completed [facility] 00:00:00 [facility] HIB 4 Dose Schedule 2001 Completed [facility] 00:00:00 [facility] Hep B, Adol or Pedi 2001 Completed [facility] Dosage 00:00:00 [facility] Polio (IPV/OPV) 2001 Completed [facility] 00:00:00 [facility] DTAP 2001 Completed [facility] 00:00:00 [facility] HIB 4 Dose Schedule 2001 Completed [facility] 00:00:00 [facility] Hep B, Adol or Pedi 2001 Completed [facility] Dosage 00:00:00 [facility] Polio (IPV/OPV) 2001 Completed [facility] 00:00:00 [facility] DTAP 2001 Completed [facility] 00:00:00 [facility] HIB 4 Dose Schedule 2001 Completed [facility] 00:00:00 [facility] Hep B, Adol or Pedi 2001 Completed [facility] Dosage 00:00:00 [facility] Polio (IPV/OPV) 2001 Completed [facility] 00:00:00 [facility] DTAP 2001 Completed [facility] 00:00:00 [facility] HIB 4 Dose Schedule 2001 Completed [facility] 00:00:00 [facility] Hep B, Adol or Pedi 2001 Completed [facility] of Dosage 00:00:00 [facility] Polio (IPV/OPV) 2001 Completed [facility] 00:00:00 [facility] Hep B, Adol or Pedi 2001 Completed [facility] Dosage 00:00:00 [facility] Hep B, Adol or Pedi 2001 Completed [facility] Dosage 00:00:00 [facility] Hep B, Adol or Pedi 2001 Completed [facility] Dosage 00:00:00 [facility] Hep B, Adol or Pedi 2001 Completed [facility] Dosage 00:00:00 [facility] Hep B, Adol or Pedi 2001 Completed [facility] Dosage 00:00:00 [facility] Hep B, Adol or Pedi 2001 Completed [facility] Dosage 00:00:00 [facility] Hep B, Adol or Pedi 2001 Completed [facility] Dosage 00:00:00 [facility] Hep B, Adol or Pedi 2001 Completed [facility] Dosage 00:00:00 [facility] Hep B, Adol or Pedi 2001 Completed [facility] Dosage 00:00:00 [facility] Hep B, Adol or Pedi 2001 Completed [facility] Dosage 00:00:00 [facility] Hep B, Adol or Pedi 2001 Completed [facility] Dosage 00:00:00 [facility] Hep B, Adol or Pedi 2001 Completed [facility] Dosage 00:00:00 [facility] Hep B, Adol or Pedi 2001 Completed [facility] Dosage 00:00:00 [facility] Hep B, Adol or Pedi 2001 Completed [facility] Dosage 00:00:00 [facility] Hep B, Adol or Pedi 2001 Completed [facility] Dosage 00:00:00 [facility] Hep B, Adol or Pedi 2001 Completed [facility] Dosage 00:00:00 [facility] Hep B, Adol or Pedi 2001 Completed [facility] Dosage 00:00:00 [facility] Hep B, Adol or Pedi 2001 Completed [facility] of Dosage 00:00:00 [facility] Hep B, Adol or Pedi 2001 Completed [facility] of Dosage 00:00:00 [facility] Hep B, Adol or Pedi 2001 Completed [facility] Dosage 00:00:00 [facility] Hep B, Adol or Pedi 2001 Completed [facility] of Dosage 00:00:00 [facility] Hep B, Adol or Pedi 2001 Completed [facility] Dosage 00:00:00 [facility] Hep B, Adol or Pedi 2001 Completed [facility] Dosage 00:00:00 [facility] Hep B, Adol or Pedi 2001 Completed [facility] Dosage 00:00:00 [facility] Hep B, Adol or Pedi 2001 Completed [facility] Dosage 00:00:00 [facility] Hep B, Adol or Pedi 2001 Completed [facility] Dosage 00:00:00 [facility] Hep B, Adol or Pedi 2001 Completed [facility] Dosage 00:00:00 [facility] Hep B, Adol or Pedi 2001 Completed [facility] of Dosage 00:00:00 [facility] Hep B, Adol or Pedi 2001 Completed [facility] Dosage 00:00:00 [facility] Hep B, Adol or Pedi 2001 Completed [facility] Dosage 00:00:00 [facility] Hep B, Adol or Pedi 2001 Completed [facility] of Dosage 00:00:00 [facility] Hep B, Adol or Pedi 2001 Completed [facility] of Dosage 00:00:00 [facility] Hep B, Adol or Pedi 2001 Completed [facility] Dosage 00:00:00 [facility] Hep B, Adol or Pedi 2001 Completed [facility] Dosage 00:00:00 [facility] Vital Signs Vital Name Observation Time Observation Value Comments Source Systolic blood 2022-02-25 20:03:00 132 mm[Hg] [facility] pressure [facility] Diastolic blood 2022-02-25 20:03:00 58 mm[Hg] [facility] of pressure [facility] Heart rate 2022-02-25 20:03:00 107 /min [facility] Body temperature 2022-02-25 20:03:00 36.5 Ania [facility] Res[facility] rate 2022-02-25 20:03:00 17 /min [facility] ers[facility] of [facility] Body height 2022-02-25 20:03:00 162.6 cm [facility] of [facility] Body weight 2022-02-25 20:03:00 58.605 kg [facility] BMI 2022-02-25 20:03:00 22.18 kg/m2 [facility] Systolic blood 2022-01-28 21:55:00 112 mm[Hg] [facility] of pressure [facility] Diastolic blood 2022-01-28 21:55:00 70 mm[Hg] [facility] of pressure [facility] Heart rate 2022-01-28 21:55:00 102 /min [facility] Body temperature 2022-01-28 21:55:00 36.44 Ania [facility] Respiratory rate 2022-01-28 21:55:00 17 /min [facility] of [facility] Body height 2022-01-28 21:55:00 162.6 cm [facility] Body weight 2022-01-28 21:55:00 58.968 kg [facility] BMI 2022-01-28 21:55:00 22.31 kg/m2 [facility] Systolic blood 2021-12-29 21:28:00 113 mm[Hg] [facility] of pressure [facility] Diastolic blood 2021-12-29 21:28:00 71 mm[Hg] [facility] of pressure [facility] Heart rate 2021-12-29 21:28:00 102 /min [facility] Respiratory rate 2021-12-29 21:28:00 20 /min [facility] of [facility] Oxygen saturation 2021-12-29 21:28:00 98 /min Uni versity of in Arterial blood [facility] [place] Body temperature 2021-12-29 17:33:00 36.72 Ania [facility] of [facility] Body height 2021-12-29 17:33:00 162.6 cm [facility] Body weight 2021-12-29 17:33:00 61.236 kg [facility] of [facility] BMI 2021-12-29 17:33:00 23.17 kg/m2 [facility] Systolic blood 2021-12-18 18:15:00 112 mm[Hg] Univer [facility]ity of pressure [facility] Diastolic blood 2021-12-18 18:15:00 76 mm[Hg] [facility]ive [facility]ity of pressure [facility] Heart rate 2021-12-18 18:15:00 107 /min [facility] Body temperature 2021-12-18 18:15:00 35.89 Ania [facility] Respiratory rate 2021-12-18 18:15:00 21 /min Univ ers[facility] of [facility] Body height 2021-12-18 18:15:00 162.6 cm [facility] Body weight 2021-12-18 18:15:00 61.236 kg [facility] BMI 2021-12-18 18:15:00 23.17 kg/m2 [facility] Systolic blood 2021-01-14 20:18:00 112 mm[Hg] Univer [facility]ity of pressure [facility] Diastolic blood 2021-01-14 20:18:00 72 mm[Hg] [facility] of pressure [facility] Heart rate 2021-01-14 20:18:00 109 /min [facility] Body temperature 2021-01-14 20:18:00 36.78 Ania [facility] Respiratory rate 2021-01-14 20:18:00 18 /min [facility] of [facility] Body height 2021-01-14 20:18:00 165.1 cm [facility] Body weight 2021-01-14 20:18:00 57.153 kg [facility] BMI 2021-01-14 20:18:00 20.97 kg/m2 [facility] Body mass index 2021-01-14 20:18:00 41.23 % [facility] (BMI) [Percentile] [facility] Systolic blood 2020-06-05 14:28:00 123 mm[Hg] [facility]iver [facility]ity of pressure [facility] Diastolic blood 2020-06-05 14:28:00 75 mm[Hg] [facility] of pressure [facility] Heart rate 2020-06-05 14:28:00 91 /min [facility] Body temperature 2020-06-05 14:28:00 36.5 Ania [facility] Respiratory rate 2020-06-05 14:28:00 16 /min [facility] Body height 2020-06-05 14:28:00 162.6 cm [facility] Body weight 2020-06-05 14:28:00 54.658 kg [facility] BMI 2020-06-05 14:28:00 20.68 kg/m2 [facility] Systolic blood 2020-04-30 20:34:00 131 mm[Hg] Univer [facility]ity of pressure [facility] Diastolic blood 2020-04-30 20:34:00 79 mm[Hg] Unive [facility]ity of pressure [facility] Heart rate 2020-04-30 20:34:00 90 /min [facility] Body temperature 2020-04-30 20:34:00 36.67 Ania [facility] Respiratory rate 2020-04-30 20:34:00 16 /min [facility] Body height 2020-04-30 20:34:00 162.6 cm [facility] Body weight 2020-04-30 20:34:00 55.112 kg [facility] BMI 2020-04-30 20:34:00 20.86 kg/m2 [facility] Systolic blood 2020-04-16 18:58:00 124 mm[Hg] Univer [facility]ity of pressure [facility] Diastolic blood 2020-04-16 18:58:00 75 mm[Hg] [facility]ive [facility] of pressure [facility] Heart rate 2020-04-16 18:58:00 94 /min [facility] Body temperature 2020-04-16 18:58:00 36.56 Ania [facility] Respiratory rate 2020-04-16 18:58:00 16 /min [facility] Body height 2020-04-16 18:58:00 162.6 cm [facility] Body weight 2020-04-16 18:58:00 54.914 kg [facility] BMI 2020-04-16 18:58:00 20.78 kg/m2 [facility] of [facility] Systolic blood 2020-01-31 19:05:00 105 mm[Hg] Univer [facility]ity of pressure [facility] Diastolic blood 2020-01-31 19:05:00 66 mm[Hg] [facility]ive [facility]ity of pressure [facility] Heart rate 2020-01-31 19:05:00 96 /min [facility] Body temperature 2020-01-31 19:05:00 36.78 Ania [facility] Respiratory rate 2020-01-31 19:05:00 13 /min [facility] of [facility] Body weight 2020-01-31 19:05:00 53.241 kg [facility] Oxygen saturation 2020-01-31 19:05:00 97 /min Uni versity of in Arterial blood [facility] Systolic blood 2019-12-07 14:37:00 109 mm[Hg] Univer sity of pressure [facility] Diastolic blood 2019-12-07 14:37:00 73 mm[Hg] [facility]ity of [facility] Heart rate 2019-12-07 14:37:00 95 /min [facility] Body temperature 2019-12-07 14:37:00 36.67 Ania [facility] Respiratory rate 2019-12-07 14:37:00 16 /min [facility] Body height 2019-12-07 14:37:00 162.6 cm [facility] Body weight 2019-12-07 14:37:00 54.63 kg [facility] BMI 2019-12-07 14:37:00 20.67 kg/m2 [facility] Systolic blood 2019-09-14 19:18:00 114 mm[Hg] Univer [facility]ity of pressure [facility] Diastolic blood 2019-09-14 19:18:00 72 mm[Hg] [facility]ive [facility]ity of pressure [facility] Heart rate 2019-09-14 19:18:00 88 /min [facility] Body temperature 2019-09-14 19:18:00 36.67 Ania [facility] Respiratory rate 2019-09-14 19:18:00 16 /min [facility] Body height 2019-09-14 19:18:00 165.1 cm [facility] Body weight 2019-09-14 19:18:00 53.695 kg [facility] BMI 2019-09-14 19:18:00 19.70 kg/m2 [facility] Systolic blood 2019-04-22 19:42:00 136 mm[Hg] pt anxious [facility] of pressure [facility] Diastolic blood 2019-04-22 19:42:00 79 mm[Hg] pt anxious [facility] of pressure [facility] Heart rate 2019-04-22 19:42:00 123 /min pt anxious [facility] Body temperature 2019-04-22 19:42:00 36.78 Ania [facility] Respiratory rate 2019-04-22 19:42:00 16 /min [facility] Body weight 2019-04-22 19:42:00 51.767 kg [facility] Systolic blood 2019-02-28 16:34:00 115 mm[Hg] Univer [facility]ity of pressure [facility] Diastolic blood 2019-02-28 16:34:00 75 mm[Hg] [facility]ive [facility] of pressure [facility] Heart rate 2019-02-28 16:34:00 79 /min [facility] Body temperature 2019-02-28 16:34:00 36.78 Ania [facility] Respiratory rate 2019-02-28 16:34:00 16 /min [facility] Body height 2019-02-28 16:34:00 165.1 cm [facility] Body weight 2019-02-28 16:34:00 51.483 kg [facility] BMI 2019-02-28 16:34:00 18.89 kg/m2 [facility] Systolic blood 2019-01-31 20:29:00 109 mm[Hg] Univer [facility]ity of pressure [facility] Diastolic blood 2019-01-31 20:29:00 72 mm[Hg] [facility]ive [facility]ity of pressure [facility] Body height 2019-01-31 20:29:00 162.6 cm [facility] Body weight 2019-01-31 20:29:00 53.071 kg [facility] BMI 2019-01-31 20:29:00 20.08 kg/m2 [facility] Systolic blood 2018-11-05 14:07:00 119 mm[Hg] Univer [facility]ity of pressure [facility] Diastolic blood 2018-11-05 14:07:00 70 mm[Hg] [facility]ive [facility]ity of pressure [facility] Heart rate 2018-11-05 14:07:00 120 /min [facility] Respiratory rate 2018-11-05 14:07:00 18 /min [facility] of [facility] Body height 2018-11-05 14:07:00 165.1 cm [facility] Body weight 2018-11-05 14:07:00 53.978 kg [facility] BMI 2018-11-05 14:07:00 19.80 kg/m2 [facility] Body weight 2018-10-26 15:22:00 53.978 kg [facility] of [facility] BMI 2018-10-26 15:22:00 19.80 kg/m2 [facility] Oxygen saturation 2018-10-26 15:22:00 100 /min Uni versity of in Arterial blood [facility] Systolic blood 2018-10-26 15:22:00 109 mm[Hg] [facility]iver [facility]ity of [facility] Diastolic blood 2018-10-26 15:22:00 78 mm[Hg] [facility] of [facility] Heart rate 2018-10-26 15:22:00 76 /min [facility] Body temperature 2018-10-26 15:22:00 35.72 Ania [facility] Respiratory rate 2018-10-26 15:22:00 18 /min [facility] Body height 2018-10-26 15:22:00 165.1 cm [facility] Systolic blood 2018-09-27 18:55:00 115 mm[Hg] [facility]ity of [facility] Diastolic blood 2018-09-27 18:55:00 74 mm[Hg] Unive rsity of pressure [facility] Heart rate 2018-09-27 18:55:00 94 /min [facility] Body temperature 2018-09-27 18:55:00 36.28 Ania [facility] Respiratory rate 2018-09-27 18:55:00 16 /min [facility] Body height 2018-09-27 18:55:00 165.1 cm [facility] Body weight 2018-09-27 18:55:00 55.112 kg [facility] BMI 2018-09-27 18:55:00 20.22 kg/m2 [facility] Procedures Procedure Date / Time Performed Performing Clinician Sourc e POCT URINALYSIS 2022-02-25 20:00:00 Ange Gaston [facility] GLUCOSE & PROTEIN [facility] POCT URINALYSIS W/O 2022-01-28 00:00:00 Ange Gaston [facility] SPECIFIC GRAVITY [facility] US FIRST 2021-12-29 20:51:30 Yara Eddy [facility] TRIMESTER LESS THAN [address] [facility] WEEKS HB ABO GROUPING 2021-12-29 18:25:00 Yara Eddy [facility] POCT TEST 2021-12-29 18:25:00 Yara Eddy [facility] TOTAL BETA HCG ASSAY 2021-12-29 18:23:00 Yara Eddy [facility] URINALYSIS 2021-12-29 18:23:00 Yara Eddy [facility] CONSENT/REFUSAL FOR 2021-12-29 17:22:42 Doctor Unassigned, No Un [facility] DIAGNOSIS AND Name [facility] TREATMENT CBC WITH DIFF 2021-12-18 19:32:[address] [facility] RUBELLA SCREEN IGG 2021-12-18 19:32:00 Dominique Penny [facility] VZV ANTIBODY SCREEN 2021-12-18 19:32:00 Dominique Penny [facility] HEPATITIS B SURFACE 2021-12-18 19:32:00 Dominique Penny [facility] ANTIGEN [facility] HB ABO GROUPING 2021-12-18 19:32:00 [facility] 2021-12-18 19:32:[address] [facility] GC & CHLAMYDIA 2021-12-18 19:32:00 Dominique Penny [facility] AMPLIFIED ASSAY [facility] HIV 1/2 AG-AB WITH 2021-12-18 19:32:00 Dominique Penny [facility] REFLEX [facility] GALV ONLY - SYPHILIS 2021-12-18 19:32:00 Dominique Penny [facility] IGG/IGM [facility] FLU VACC ([id number]), 2021-12-18 18:53:03 Dominique Penny [facility] 6 MO-64 YRS, .5ML, IM, Medical B ranch QUAD (FLUCELVAX) POCT TEST 2021-12-18 00:00:00 Dominique Penny [facility] POCT URINALYSIS W/O 2021-12-18 00:00:00 Dominique Penny [facility] SPECIFIC GRAVITY [facility] ASSIGNMENT OF BENEFITS 2021-10-11 17:44:28 Doctor Unassigned, No [facility] POCT TEST 2021-01-14 00:00:00 Adalberto Cloud [facility] POCT TEST 2020-04-30 20:35:00 Jonathon Bacon [facility] POCT TEST 2020-04-16 19:08:00 Jonathon Bacon [facility] POCT TEST 2019-09-14 19:19:00 Hiram Glsas [facility] ASSIGNMENT OF BENEFITS 2019-09-14 18:53:03 Doctor Unassigned, No [facility] GARDASIL 9 (HPV 9V) 2019-02-28 17:02:55 Omayra Eddy [facility] VACCINE [facility] MR SHOULDER RIGHT WO 2018-11-04 16:08:54 Sarika Cho [facility] CONTRAST [facility] XR SHOULDER 2+ VW 2018-10-26 17:48:11 Sarika Cho [facility] GARDASIL 9 (HPV 9V) 2018-09-27 19:01:58 Omayra Eddy [facility] Encounters Start End Encounter Admission Attending Care Care Encounter Source Date/Time Date/Time Type Type Clinicians Facility Department ID 2022-03-25 2022-03-25 Outpatient R [facility] [id number] Univers 13:15:00 13:15:00 ity [facility] 2022-03-04 2022-03-04 Telephone Provider, [facility] 1.2.840.114 [id number] Univers 00:00:00 00:00:00 [facility] MANAGER CUSTOMER 350.1.13.10 ity of Temp REGIONAL 4.2.7.2.686 Mic as MATERNAL [phone] [facility] ical & CHILD [address] [place] [address] 2022-02-25 2022-02-25 [facility] [id number] Univers 14:00:00 14:26:21 [facility]22-[facility]-25 2022-02-25 Routine Provider, Olindashaun [facility] 1 .2.840.114 [id number] Univers 14:00:00 14:26:21 Ange Gaston MANAGER CUSTOMER 350.1.13. 10 ity of Visit REGIONAL 4.2.7.2.686 Mic as MATERNAL [id number] [facility] [address] [place] [address] 2022-01-28 2022-01-28 Outpatient [facility] [id number] Univers 15:30:00 16:15:31 [facility] 2022-01-28 2022-01-28 Routine Provider, [facility] 1 .2.840.114 [id number] Univers 15:30:00 16:15:31 Ange Gaston MANAGER CUSTOMER 350.1.13. 10 ity of Visit REGIONAL 4.2.7.2.686 Mic as MATERNAL [phone] [facility] ical & CHILD [address] [place] [address] 2022-01-15 2022-01-15 Outpatient R [facility] [id number] Univers 09:45:00 09:45:00 DOMINIQUE [facility] 2022-01-13 2022-01-13 Outpatient P [facility] [id number] Univers 15:30:00 15:30:00 ity [facility] 2022-01-13 2022-01-13 Silk Brusher Ultrasound, Tianna [facility] 1.2 .840.114 [id number] Univers 14:45:00 15:15:00 Visit Brenton Aden MANAGER CUSTOMER 350.1.13.1 0 ity of [facility] 4.2.7.2.686 Mic as MATERNAL [id number] Med ical & CHILD [address] [place] [address] 2022-01-13 2022-01-13 Outpatient P KEIKO [facility] [id number] Univers 14:45:00 14:45:00 BRENTON [facility] 2022-01-13 2022-01-13 Telephone [facility] 1.2.321.772 [id number] Univers 00:00:00 00:00:00 Dominique Lee MANAGER CUSTOMER 350.1.13.10 it y of [facility] 4.2.7.2.686 Mic as MATERNAL [id number] Med ical & CHILD [address] [place] [address] 2021-12-29 2021-12-29 Emergency X NUNU [facility] ERT [id number] Univers 11:36:00 15:32:00 YARA [facility] 2021-12-29 2021-12-29 Emergency [facility] 1.2.840.114 [id number] Univers 11:36:00 15:32:00 Yara LOPEZ 350.1.13.10 ity [facility] 4.2.7.2.686 [facility] [phone] [facility] [address] 2021-12-20 2021-12-20 Outpatient R [facility] [id number] Univers 10:00:00 10:00:00 ity [facility] 2021-12-18 2021-12-18 Outpatient R [facility] [id number] Univers 13:15:00 14:34:42 DOMINIQUE [facility] 2021-12-18 2021-12-18 Initial Stiven [facility] 1.2.840.114 [id number] Univers 13:15:00 14:34:42 Dominique L MANAGER CUSTOMER 350.1.13.10 i ty of Visit [facility] 4.2.7.2.686 Mic as MATERNAL [id number] Med ical & CHILD [address] [place] [address] 2021-10-11 2021-10-11 Outpatient R SIMONE [facility] [id number] Univers 12:30:00 12:30:00 JEFF ity of [facility] 2021-10-11 2021-10-11 Orders Doctor REBECCA 1.2.840.114 [id number] Univers 00:00:00 00:00:00 Only Unassigned, ZULEIKA 350.1.13.10 ity of [place] [facility] 4.2.7.2.686 Mic as [id number] [address] 2021-01-29 2021-01-29 Outpatient R ADALBERTO CLOUD [facility] [id number] Univers 13:00:00 13:00:00 ity of [facility] 2021-01-14 2021-01-14 Silk Brusher 2, Adc Lab [facility] 1.2.840.114 [id number] Univers 14:48:24 15:03:24 Visit Adalberto Cloud 350.1.13.10 ity [facility] 4.2.7.2.686 [place] [phone] Me dical NAL [address] [facility] 2021-01-14 2021-01-14 Outpatient R ADALBERTO CLOUD [facility] [id number] Univers 14:00:00 14:42:01 ity of [facility] 2021-01-14 2021-01-14 Initial Albino Adalberto [facility] 1.2.733.122 [id number] Univers 13:56:49 14:42:01 Cam JOHN 350.1.13.10 ity of Visit [place] [id number] Me dical NAL 134 [facility] 2020-07-24 2020-07-24 Outpatient R [facility] [id number] Univers 14:30:00 14:30:00 ity [facility] 2020-07-11 2020-07-11 Laboratory Lab, Adc Fam Pob I [facility] 1.2. 840.114 [id number] Univers 15:01:06 15:21:06 Only Sloane Cannon [facility] 350.1.13.10 ity [facility] 4.2.7.2.686 Mic as Professio [phone] Wy dic[address] Office Building [address] 2020-07-11 2020-07-11 Outpatient R JACK [facility] [id number] Univers 15:00:00 15:00:00 [facility] 2020-06-05 2020-06-05 [facility] 1.2.840.114 [id number] Univers 09:22:20 09:43:44 Visit [facility] Casey MANAGER CUSTOMER 350.1.13.10 ity [facility] 4.2.7.2.686 Mic as MATERNAL [id number] [facility] ical & CHILD [address] [place] [address] 2020-06-05 2020-06-05 Outpatient R JORDI [facility] [id number] Univers 09:15:00 09:15:00 [facility] dickson o f [facility] 2020-04-30 2020-04-30 Nurse Visit, BasilRmp Nurse [facility] 1.2 .840.114 [id number] Univers 14:05:01 15:21:11 Visit Jonathon Bacon MANAGER CUSTOMER 350.1.13.10 [facility] 4.2.7.2.686 Mic as MATERNAL [id number] [facility] & [address] 2020-04-30 2020-04-30 Outpatient R [facility] [id number] Univers 14:00:00 14:00:00 [facility] 2020-04-16 2020-04-16 Office [facility] 1.2.840.114 [id number] Univers 12:50:41 13:10:17 [facility] MANAGER CUSTOMER 350.1.13.10 ity [facility] 4.2.7.2.686 Mic as MATERNAL [id number] Med ical & CHILD [address] [facility] 2020-04-16 2020-04-16 Outpatient R JORDI [facility] [id number] Univers 12:45:00 12:45:00 JONATHON ity o f [facility] 2020-03-02 2020-03-02 Outpatient R [facility] [id number] Univers 07:30:00 07:30:00 , HAYLEE ity [facility] 2020-02-29 2020-02-29 Outpatient R [facility] [id number] Univers 09:30:00 09:30:00 ity [facility] 2020-01-31 2020-01-31 Office [facility] 1.2.840.114 [id number] Univers 12:48:33 13:08:33 Visit , Haylee Caceres 350.1.13.10 it y of [facility].7.2.686 [facility] [id number] [address] 2020-01-31 2020-01-31 Outpatient R [facility] [id number] Univers 12:50:00 12:50:00 , HAYLEE [facility] 2019-12-07 2019-12-07 Nurse Visit, OlindaRmchp Nurse [facility] 1.2 .840.114 [id number] Univers 09:23:27 09:46:30 Visit Jonathon Bacon MANAGER CUSTOMER 350.1.13.10 ity of REGIONAL 4.2.7.2.686 Mic as MATERNAL [phone] [facility] ical & CHILD [address] [place] [address] 2019-12-07 2019-12-07 Outpatient R [facility] [id number] Univers 09:30:00 09:30:00 ity [facility] 2019-09-15 2019-09-15 Telephone Jordi [facility] 1.2.030.020 [id number] Univers 00:00:00 00:00:00 Jonathon Peña MANAGER CUSTOMER 350.1.13.10 ity of REGIONAL 4.2.7.2.686 Mic as MATERNAL [id number] [facility] ical & CHILD [address] [place] [address] 2019-09-14 2019-09-14 Office Jordi [facility] 1.2.840.114 [id number] Univers 14:15:38 15:09:28 Visit Jonathon Peña MANAGER CUSTOMER 350.1.13.10 ity of [facility] 4.2.7.2.686 Mic as MATERNAL [id number] [facility] ical & CHILD [address] [place] [address] 2019-09-14 2019-09-14 Nurse Visit, Debbi Nurse [facility] 1.2 .840.114 [id number] Univers 13:54:00 14:09:00 Visit Jonathon Bacon MANAGER CUSTOMER 350.1.13.10 ity of [facility] 4.2.7.2.686 Mic as MATERNAL [phone] [facility] & CHILD [address] [place] [address] 2019-09-14 2019-09-14 Outpatient R [facility] [id number] Univers 14:00:00 14:00:00 ity of [facility] 2019-09-14 2019-09-14 Orders Doctor FERNANDEZ 1.2.840.114 [id number] Univers 00:00:00 00:00:00 Only Unassigned, ZULEIKA 350.1.13.10 ity of [place] [facility] 4.2.7.2.686 Mic as [phone] [address] 2019-08-15 2019-08-15 Outpatient R [facility] [id number] Univers 10:00:00 10:00:00 ity of [facility] 2019-05-23 2019-05-23 Nurse Visit, Debbi Nurse [facility] 1.2 .840.114 [id number] Univers 10:04:09 10:19:09 Visit Hiram Glass MANAGER CUSTOMER 350.1.13. 10 ity of [facility] 4.2.7.2.686 Mic as MATERNAL [id number] [facility] & CHILD [address] [place] [address] 2019-05-23 2019-05-23 Outpatient R [facility] [id number] Univers 10:00:00 10:00:00 ity of [facility] 2019-04-27 2019-04-27 Telephone de [facility] [place] 1.2.840.114 [id number] Univers 00:00:00 00:00:00 Morris Lewis 350.1.13.10 ity of [facility] 4.2.7.2.686 [facility] [id number] [address] 2019-04-22 2019-04-22 Office Basil Nance [facility] [place] 1.2.840.114 [id number] Univers 13:32:40 14:10:35 Visit Morris 350.1.13.10 it y of Pediatric 4.2.7.2.686 [facility] [phone] [address] 2019-04-22 2019-04-22 Outpatient R BASIL NANCE [facility] [id number] Univers 13:40:00 13:40:00 ity of [facility] 2019-04-22 2019-04-22 Letter Goyo, Basil [facility] 1.2.840.114 [id number] Univers 00:00:00 00:00:00 (Out) Morris 350.1.13.10 it y of Pediatric 4.2.7.2.686 [facility] [id number] [address] 2019-04-19 2019-04-19 Telephone Bucky [facility] 1.2.840.114 [id number] Univers 00:00:00 00:00:00 Char MANAGER CUSTOMER 350.1.13.10 it y of REGIONAL 4.2.7.2.686 Mic as MATERNAL [id number] [facility] [address] [place] [address] 2019-04-19 2019-04-19 Telephone Bucky [facility] 1.2.840.114 [id number] Univers 00:00:00 00:00:00 Char MANAGER CUSTOMER 350.1.13.10 it y of REGIONAL 4.2.7.2.686 Mic as MATERNAL [phone] [facility] CH[facility] [address] [place] [address] 2019-04-19 2019-04-19 Telephone [facility] 1.2.840.114 [id number] Univers 00:00:00 00:00:00 Char MANAGER CUSTOMER 350.1.13.10 it y of REGIONAL 4.2.7.2.686 Mic as MATERNAL [phone] Med ical & CHILD [address] [place] [address] 2019-02-28 2019-02-28 Nurse Visit, [facility] 1.2 .840.114 [id number] Univers 10:04:22 11:01:49 Visit Hiram Glass MANAGER CUSTOMER 350.1.13. 10 ity of REGIONAL 4.2.7.2.686 Mic as MATERNAL [id number] [facility] [address] [place] [address] 2019-02-28 2019-02-28 Outpatient Casey [facility] [id number] Univers 10:00:00 11:01:49 HIRAM ruano [facility] 2019-02-18 2019-02-18 Telephone Visit, [facility] 1.2.908.512 [id number] Univers 00:00:00 00:00:00 [facility] MANAGER CUSTOMER 350.1.13.10 ity of Nurse REGIONAL 4.2.7.2.686 Mic as MATERNAL [id number] [facility] & CHILD [address] [place] [address] 2019-01-31 2019-01-31 Office Manuel Richter [facility] 1.2.840.114 [id number] Univers 14:21:47 15:27:47 Visit Jonas Alexandermatt Lee [facility] 350.1.13.10 ity of Surgical 4.2.7.2.686 Mic as Specialti [id number] [facility] [address] [facility] 2018-11-24 2018-11-24 Outpatient Casey JORDI [facility] [id number] Univers 09:00:00 09:38:39 JONATHON ruano [facility] 2018-11-05 2018-11-05 Office Manuel Richter [facility] 1.2.840.114 [id number] Univers 08:58:14 09:13:14 Visit Catherine Souleymane Rojas 350.1.13.10 ity of Surgical 4.2.7.2.686 Mic as Specialti [id number] [facility] [address] [facility] 2018-11-05 2018-11-05 Letter Rober [facility] 1.2.840.114 [id number] Univers 00:00:00 00:00:00 (Out) Manuel Edwards Bob 350.1.13.10 it y of Surgical 4.2.7.2.686 Mic as Special [id number] Wy hima es [address] [facility] 2018-11-04 2018-11-04 [facility] 1.2.840.114 [id number] [facility] 09:28:27 23:59:00 Encounter Sarika Elizabeth 350.1.13.10 ity of CARE 4.2.7.2.686 [facility] AT [id number] Wy hima VICTORY 804 [facility] 2018-10-28 2018-10-28 [facility] 1.2.840.11 [id number] Univers 00:00:00 00:00:00 Sarika Elizabeth 350.1.13.10 ity of Pediatric 4.2.7.2.686 [place] [facility] [id number] [address] 2018-10-26 2018-10-26 [facility] 1.2.840.114 [id number] [facility] 12:12:38 23:59:00 Encounter Sarika Elizabeth [place] 350.1.13.10 ity of [place] 4.2.7.2.686 [facility] [id number] [facility] [address] 2018-10-26 2018-10-26 Office [facility] 1.2.840.114 [id number] Univers 10:12:39 10:51:51 Visit Sarika Elizabeth 350.1.13.10 ity of Pediatric 4.2.7.2.686 [facility] [id number] [address] 2018-10-26 2018-10-26 Letter de [facility] 1.2.239.830 [id number] Univers 00:00:00 00:00:00 (Out) [place] Lewis 350.1.13.10 ity of [place] [facility] 4.2.7.2.686 [place] [facility] [id number] [address] 2018-09-27 2018-09-27 Nurse Visit, OlindaRmchp Nurse [facility] 1.2 .840.114 [id number] Univers 13:41:05 14:07:34 Visit Omayra Eddy MANAGER CUSTOMER 350.1.13.10 ity of REGIONAL 4.2.7.2.686 Mic as MATERNAL [phone] [facility] ical & CHILD [address] [place] [address] Results Test Description Test Time Test Comments Results Result Comments Source POCT URINALYSIS GLUCOSE & PROTEIN 2022-02-25 20:00:00 Test Item Value Reference Range Interpretation Comme nts POCT U PROT (test code = 3259) trace Negative - Negative POCT U GLU (test code = 3256) negative Negative - Negative [facility] W/O SPECIFIC [id number] 22:00:00 Test Item Value Reference Range Interpretation Comments POCT PH U (test code = 3254) . 5-8 POCT U LEUK EST (test code = . Negative - Negative 3263) POCT U NIT (test code = 3262) . Negative - Negative POCT U PROT (test code = 3259) 1+ Negative - Negative POCT U GLU (test code = 3256) negative Negative - Negative POCT U KETONE (test code = 3258) . Negative - Negative POCT U BLD (test code = 3257) . Negative - Negative [facility]AllenTOTAL BETA HCG [id number] 19:46:25 Test Item Value Reference Range Interpretation Comments BETA HCG (test See_Comment [Automated m essage] code = The system [employer] [id number]) generated this result transmit jeremie reference range : Non- fe male and male patien ts: <5 mIU/mL. The reference range was not used to interpret this result as normal/abnormal . EMI (test code Gestational Age ? ? = EMI) ?Range (mIU/mL) 1-10 ?Weeks ?88-22063320-68 Weeks ?95266-80608135-40 Weeks ?0857-58834733-50 Weeks ?4786-869573 Biotin has been reported to cause a negative bias, interpret results relative to patient's use of biotin. [facility]AllenType and Screen - ONCE [id number] 19:29:00 Test Item Value Reference Range Interpretation Comments ABO & RH (test code O Positive Performe d at [facility] = 20) Laboratory [facility] [address] [place] [address]Glpb Free: [phone] A No. [id number] IAT (test code = Negative Performed a t [facility] 1185) Laboratory [facility] [address] [place] [address]Sxyb Free: [phone] A No. [id number] [facility]Allen[facility] [id number] 18:25:00 Test Item Value Reference Range Interpretation Comments POCT PREG (test code = 1605) positive On board controls acceptable with present C Line (test code = 3574) POCT PREG LOT # (test code = 3575) [id number] POCT PREG TEST DATE (test code = 3576) Lab Interpretation (test code = Normal 40905-1) [facility] WORKUP, BLOOD [id number] 01:52:16 Test Item Value Reference Range Interpretation Comments ABO & RH (test code O POSITIVE Performe d at [facility] = 20) Laboratory [facility] [address]Uxfw Free: [phone] A No. [id number] IAT (test code = Negative Performed a t [facility] 1185) Laboratory [facility] [address] [facility] s [address]Drwe Free: [phone] A No. [id number] [facility] WORKUP, BLOOD [id number] 01:52:16 Test Item Value Reference Range Interpretation Comments ABO & RH (test code O POSITIVE Performe d at [facility] = 20) Laboratory [facility] s [address]Xaet Free: [phone] A No. [id number] IAT (test code = Negative Performed a t [facility] 1185) Laboratory [facility] s [address]Xotl Free: [phone] A No. [id number] [facility] [id number] 18:39:00 Test Item Value Reference Range Interpretation Comments POCT PREG (test code = 1605) Positive On board controls acceptable with C Yes Line (test code = 3574) POCT PREG LOT # (test code = 3575) POCT PREG TEST DATE (test code = 3576) Lab Interpretation (test code = Abnormal 95173-4) [facility] URINALYSIS W/O SPECIFIC [id number] 18:39:00 Test Item Value Reference Range Interpretation Comments POCT PH U (test code = 3254) 6 mg/dl 5-8 POCT U LEUK EST (test code = Negative - Negative 3263) POCT U NIT (test code = 3262) neg Negative - Negative POCT U PROT (test code = 3259) trace Negative - Negative POCT U GLU (test code = 3256) neg Negative - Negative POCT U KETONE (test code = 3258) neg Negative - Negative POCT U BLD (test code = 3257) neg Negative - Negative Lab Interpretation (test code = Abnormal 42012-9) [facility] [id number] 18:39:00 Test Item Value Reference Range Interpretation Comments POCT PREG (test code = 1605) Positive On board controls acceptable with C Yes Line (test code = 3574) POCT PREG LOT # (test code = 3575) POCT PREG TEST DATE (test code = 3576) Lab Interpretation (test code = Abnormal 88794-3) [facility] URINALYSIS W/O SPECIFIC [id number] 18:39:00 Test Item Value Reference Range Interpretation Comments POCT PH U (test code = 3254) 6 mg/dl 5-8 POCT U LEUK EST (test code = Negative - Negative 3263) POCT U NIT (test code = 3262) neg Negative - Negative POCT U PROT (test code = 3259) trace Negative - Negative POCT U GLU (test code = 3256) neg Negative - Negative POCT U KETONE (test code = 3258) neg Negative - Negative POCT U BLD (test code = 3257) neg Negative - Negative Lab Interpretation (test code = Abnormal 87834-7) [facility] [id number] 20:42:00 Test Item Value Reference Range Interpretation Comments POCT PREG (test code = 1605) Negative On board controls acceptable with C Yes Line (test code = 3574) POCT PREG LOT # (test code = 3575) POCT PREG TEST DATE (test code = 3576) [facility] [id number] 20:35:00 Test Item Value Reference Range Interpretation Comments POCT PREG (test code = 1605) Negative On board controls acceptable with C Yes Line (test code = 3574) POCT PREG LOT # (test code = 3575) POCT PREG TEST DATE (test code = 3576) [facility] [id number] 19:08:00 Test Item Value Reference Range Interpretation Comments POCT PREG (test code = 1605) Negative On board controls acceptable with C Yes Line (test code = 3574) POCT PREG LOT # (test code = 3575) POCT PREG TEST DATE (test code = 3576) [facility] [id number] 19:08:00 Test Item Value Reference Range Interpretation Comments POCT PREG (test code = 1605) Negative On board controls acceptable with C Yes Line (test code = 3574) POCT PREG LOT # (test code = 3575) POCT PREG TEST DATE (test code = 3576) [facility] [id number] 19:19:00 Test Item Value Reference Range Interpretation Comments POCT PREG (test code = 1605) Negative On board controls acceptable with C Yes Line (test code = 3574) POCT PREG LOT # (test code = 3575) POCT PREG TEST DATE (test code = 3576) [facility]Allen[facility] 2+ VW [id number] 17:51:07 HISTORY:?Pain. FINDINGS: 2 frontal projection views of right shoulder obtained with thearm in internal and external rotation positions showed no acute fracture ordislocation. No significant changes of arthritis or aggressive bone lesionsseen. No soft tissue calcifications in the rotator cuff tendons. P rominenttransverse process of C7 noted. No cervical rib. CONCLUSIONS: Normal study. [facility], Radiant Results Inft User - 10/26/2018 12:53 PM CDTHISTORY: Pain.FINDINGS: 2 frontal projection views of right shoulder obtained with thearm in internal and external rotation positions showed no acute fracture ord islocation. No significant changes of arthritis or aggressive bone lesionsseen. No soft tissue calcifications in the rotator cuff tendons. Prominenttransverse process of C7 noted. No cervical rib.CONCLUSIONS: Normal study.[place] [facility] [id number] 17:50:25HISTORY:?Pain. FINDINGS: 2 frontal projection views of left shoulder obtained with the jose internal and external rotation positions showed no acute fracture ordislocation. No significant changes of arthritis or aggressive bone lesionsseen. No cervical rib. No calcification in the rotator cuff tendons. CONCLUSIONS: Normal study. [facility], Radiant Results Inft User - 10/26/2018 12:52 PM CDTHISTORY: Pain.FINDINGS: 2 frontal projection views of left shoulder obtained with the jose internal and external rotation positions showed no acute fracture ordislocation. No significant changes of arthritis or aggressive bone lesionsseen. No cervical rib. No calcification in the rotator cuff tendons.CONCLUSIONS: Normal study. [facility]
[2022-03-04 16:59] LABS: Urine Blood 3+ (Negative); Urine Glucose Negative (Negative); Urine Protein 1+ (Negative); Urine Specific Gravity >=1.030 (1.005-1.030); Urine pH 5.5 (5.0-7.0)
[2022-03-04 17:08] LABS: Absolute Lymphocytes (CBC) 1.7 K/uL (0.7-4.9); Hematocrit 31.3 % (36.0-45.0); Lymphocytes % 20.7 % (15.3-44.8); MCV 78.9 fL (80-100); MPV 7.6 fL (7.6-11.3); RBC Red Blood Cell Count 3.96 M/uL (3.86-4.86)
[2022-03-04 17:21] LABS: Urine Bacteria <20 /HPF (<20); Urine Crystals Unidentified Few /HPF (None Seen); Urine Mucus 2+ /HPF (None Seen); Urine RBC >50 /HPF (None Seen)
[2022-03-04 17:25] LABS: Urine Specific Gravity/Preg >1.030 (1.005-1.030)
[2022-03-04 17:49] LABS: Albumin 3.6 g/dL (3.4-5.0); Bilirubin Total 0.3 mg/dL (0.2-1.0); Potassium 3.7 mmol/L (3.5-5.1); Protein, Total 7.7 g/dL (6.4-8.2)
[2022-03-04] MEDS ORDERED: ACETAMINOPHEN 500 MG TAB ONE ×2 (18:52→18:56)
[2022-03-04] MEDS ORDERED: NA CHLORIDE 0.9% 1,000 ML ONE (18:52)
--- NOTE | 2022-03-04 19:48 | RAD REPORT ---
EXAM DESCRIPTION: US - OB Limited - 03/04/2022 7:14 pm CLINICAL HISTORY: ABD PAIN, COMPARISON: No comparisons FINDINGS: A single gestation is identified. No gross anatomic abnormality seen. Anatomic assessment is limited. Humeral length measurement corresponds to a 14 week 3 day age. Calculated MARTY is approximately 2022. Heart rate is 155 BPM. No intrauterine hematoma or mass. Cervical canal appears closed. No adnexal abnormality. Neither ovary was identifiable probably obscured by adnexal bowel. No adnexal abnormality suspected. IMPRESSION: Single intrauterine gestational approximately 14 week 3 day in age. Heart rate is normal . No intrauterine hematoma or mass.
--- NOTE | 2022-03-04 20:10 | ER ---
Nurse's Notes [facility] Name: Shi Benitez Age: 21 yrs Sex: Female : 2000 Arrival Date: 03/04/2022 Time: 15:20 Bed 12 Private MD: Wili Mercer E Diagnosis: 14 weeks gestation of ;Lower abdominal pain, unspecified Presentation: 03/04 15:30 Chief complaint: Patient states: R flank pain with N/V since 10 am. No known fever. 15 ll1 weeks G1, P0. Coronavirus screen: Vaccine status: Patient reports being unvaccinated. Client denies travel out of the [place] in the last 14 days. At this time, the client does not indicate any symptoms associated with coronavirus-19. Ebola Screen: Patient denies travel to an Ebola-affected area in the 21 days before illness onset. Initial Sepsis Screen: Does the patient meet any 2 criteria? No. Patient's initial sepsis screen is negative. Does the patient have a suspected source of infection? No. Patient's initial sepsis screen is negative. Risk Assessment: Do you want to hurt yourself or someone else? Patient reports no desire to harm self or others. Onset of symptoms was March 04, 2022. 15:30 Method Of Arrival: Ambulatory 1 15:30 Acuity: KAY 3 ll1 Triage Assessment: 15:31 General: Appears uncomfortable, Behavior is calm, cooperative, appropriate for age. ll1 Pain: Complains of pain in right flank Quality of pain is described as aching. : Reports pain in right flank(s). 15:31 GI: Reports nausea, vomiting. ll1 CARDIOLOGY COORDINATOR: 17:00 LMP 12/17/2021 3 Historical: - Allergies: 15:29 Pineapple; ll1 - PMHx: 15:29 None; ll1 - PSHx: 15:29 None; ll1 - Immunization history:: Client reports receiving the 2nd dose of the Covid vaccine. - Social history:: Smoking status: Patient denies any tobacco usage or history of. Screenin:11 [facility] ED Fall Risk Assessment (Adult) History of falling in the last 3 months, 3 including since admission No falls in past 3 months (0 pts) Confusion or Disorientation No (0 pts) Intoxicated or Sedated No (0 pts) Impaired Gait No (0 pts) Mobility Assist Device Used No (0 pt) Altered Elimination Yes (1 pt) Score/Fall Risk Level 0 - 2 = Low Risk. Abuse screen: Denies threats or abuse. Denies injuries from another. Nutritional screening: No deficits noted. Tuberculosis screening: No symptoms or risk factors identified. Assessment: 17:11 General: Appears in no apparent distress. uncomfortable, Behavior is calm, cooperative, eh3 appropriate for age. Pain: Complains of pain in right flank Pain radiates to right low back Pain currently is 8 out of 10 on a pain scale. Alleviated by rest, Aggravated by increased activity. Neuro: Level of Consciousness is awake, alert, obeys commands, Oriented to person, place, time, situation. Cardiovascular: Capillary refill < 3 seconds Patient's skin is warm and dry. Respiratory: Airway is patent Respiratory effort is even, unlabored, Respiratory pattern is regular, symmetrical. GI: Abdomen is round non-distended, Reports nausea, vomiting. : No signs and/or symptoms were reported regarding the genitourinary system. EENT: No signs and/or symptoms were reported regarding the EENT system. Derm: No signs and/or symptoms reported regarding the dermatologic system. Musculoskeletal: No signs and/or symptoms reported regarding the musculoskeletal system. 18:15 Reassessment: Patient appears in no apparent distress at this time. Patient and/or eh3 family updated on plan of care and expected duration. Pain level reassessed. Patient is alert, oriented x 3, equal unlabored respirations, skin warm/dry/pink. Pt states she does not want a pelvic exam at this time, provider notified. 19:15 Reassessment: Patient appears in no apparent distress at this time. Patient and/or eh3 family updated on plan of care and expected duration. Pain level reassessed. Patient is alert, oriented x 3, equal unlabored respirations, skin warm/dry/pink. 20:15 Reassessment: Patient appears in no apparent distress at this time. Patient and/or eh3 family updated on plan of care and expected duration. Pain level reassessed. Patient is alert, oriented x 3, equal unlabored respirations, skin warm/dry/pink. 21:15 Reassessment: Patient appears in no apparent distress at this time. Patient and/or eh3 family updated on plan of care and expected duration. Pain level reassessed. Patient is alert, oriented x 3, equal unlabored respirations, skin warm/dry/pink. 22:15 Reassessment: Patient appears in no apparent distress at this time. Patient and/or eh3 family updated on plan of care and expected duration. Pain level reassessed. Patient is alert, oriented x 3, equal unlabored respirations, skin warm/dry/pink. Vital Signs: 15:30 BP 105 / 72; Pulse 93; Resp 17; Temp 97.7; Pulse Ox 100% ; Weight 61.23 kg; Height 5 ll1 ft. 4 in. (162.56 cm); Pain 10/10; 17:16 BP 116 / 81; Pulse 68; Resp 18; Pulse Ox 100% on R/A; eh3 18:15 BP 116 / 82; Pulse 69; Resp 18; Pulse Ox 100% on R/A; eh3 19:15 BP 114 / 78; Pulse 72; Resp 18; Pulse Ox 100% on R/A; eh3 20:15 BP 108 / 74; Pulse 69; Resp 18; Pulse Ox 100% on R/A; eh3 21:15 BP 103 / 75; Pulse 70; Resp 18; Pulse Ox 100% on R/A; eh3 22:15 BP 102 / 57; Pulse 69; Resp 18; Pulse Ox 100% on R/A; eh3 15:30 Body Mass Index 23.17 (61.23 kg, 162.56 cm) ll1 ED Course: 15:20 Patient arrived in ED. am2 15:20 Wili Mercer MD is Private Physician. am2 15:31 Triage completed. ll1 15:31 Arm band placed on. ll1 16:10 Wilfrido Sabillon PA is PHCP. cp 16:10 Jared Pierce MD is Attending Physician. cp 17:10 Minal Begum, RN is Primary Nurse. eh3 17:11 Patient has correct armband on for positive identification. Bed in low position. Call 3 light in reach. Side rails up X2. Adult w/ patient. Pulse ox on. NIBP on. Door closed. Noise minimized. Lights dimmed. Warm blanket given. 19:00 Glenn Meredith MD is Attending Physician. cp 19:16 US OB Limited In Process Unspecified. EDMS 19:55 initiated a transfer with the [facility] Transfer Center. mw2 20:22 SARS RAPID Sent. eh3 20:34 connected Wilfrido VAZQUEZ with the Doctor from the [facility]. mw2 20:50 administrative approval given by Ebony Woo/patient has been accepted to [address] to the ER/ Dr. Stubbs accepted the patient in transfer/report to be called to [phone]. 22:45 No provider procedures requiring assistance completed. Patient transferred, IV remains eh3 in place. 23:01 Primary Nurse role handed off by Minal Begum, JEFRY cp Administered Medications: 18:59 Drug: NS 0.9% 1000 ml Route: IV; Rate: 1 bolus; Site: left antecubital; 3 20:30 Follow up: IV Status: Completed infusion; IV Intake: 1000ml eh3 18:59 Drug: Tylenol 1000 mg Route: PO; eh3 20:00 Follow up: Response: Pain is decreased eh3 Medication: 22:45 VIS not applicable for this client. 3 Intake: 20:30 IV: 1000ml; Total: 1000ml. 3 Outcome: 20:09 ER care complete, transfer ordered by . cp 22:58 Transferred by ground EMS to other acute care facility: [facility]. Note: 3 Report called to [place] in ED 22:58 Condition: stable 22:58 Instructed on the need for transfer. 22:59 Patient left the ED. eh3 23:07 Patient left the ED. 3 Signatures: Dispatcher [employer] EDMS Wilfrido Sabillon PA PA cp Vicky Hess am2 Gera Nina 2 Joel Birmingham RN RN 1 Minal Begum, RN RN 3 Corrections: (The following items were deleted from the chart) 20:21 19:15 BP 118 / 82; Pulse 72bpm; Resp 18bpm; Pulse Ox 100% RA; eh3 eh3
--- NOTE | 2022-03-04 20:10 | EDPHYS ---
Physician Documentation [facility] Name: Shi Benitez Age: 21 yrs Sex: Female : 2000 Arrival Date: 03/04/2022 Time: 15:20 Bed 12 Private MD: Wili Mercer E ED Physician Glenn Meredith HPI: 03/04 16:25 This 21 yrs old Female presents to ER via Ambulatory with complaints of Flank Pain - cp right side/15 wks preg. 16:25 The patient complains of pain in the right lower abdomen. The pain radiates to the cp right lower back. Onset: The symptoms/episode began/occurred this morning, about 1000. Associated signs and symptoms: Pertinent negatives: dysuria, fever, pain radiating to the lower extremities, vomiting, vaginal bleeding, vaginal discharge. Severity of pain: in the emergency department the pain is unchanged despite home interventions. COTTON TIER: 17:00 LMP 12/17/2021 [facility] Historical: - Allergies: 15:29 Pineapple; ll1 - PMHx: 15:29 None; ll1 - PSHx: 15:29 None; ll1 - Immunization history:: Client reports receiving the 2nd dose of the Covid vaccine. - Social history:: Smoking status: Patient denies any tobacco usage or history of. ROS: 16:30 Constitutional: Negative for body aches, chills, fever, poor PO intake. cp 16:30 Eyes: Negative for injury, pain, redness, and discharge. cp 16:30 ENT: Negative for drainage from ear(s), ear pain, sore throat, difficulty swallowing, difficulty handling secretions. 16:30 Cardiovascular: Negative for chest pain, edema, palpitations. 16:30 Respiratory: Negative for cough, shortness of breath, wheezing. 16:30 Abdomen/GI: Positive for abdominal pain, nausea, vomiting, of the right lower quadrant, Negative for diarrhea, constipation. 16:30 Back: Negative for pain at rest, pain with movement. 16:30 : Negative for urinary symptoms, vaginal bleeding, vaginal discharge. 16:30 Neuro: Negative for altered mental status, dizziness, headache, numbness, weakness. 16:30 All other systems are negative. Exam: 16:33 Constitutional: The patient appears in no acute distress, alert, awake, non-toxic, well cp developed, well nourished. 16:33 Head/Face: Normocephalic, atraumatic. cp 16:33 Eyes: Periorbital structures: appear normal, Conjunctiva: normal, no exudate, no injection, Sclera: no appreciated abnormality, Lids and lashes: appear normal, bilaterally. 16:33 ENT: External ear(s): are unremarkable, Nose: is normal, Mouth: Lips: moist, Oral mucosa: pink and intact, moist. 16:33 Chest/axilla: Inspection: normal. 16:33 Cardiovascular: Rate: normal, Rhythm: regular. 16:33 Respiratory: the patient does not display signs of respiratory distress, Respirations: normal, no use of accessory muscles, no retractions, labored breathing, is not present, Breath sounds: are clear throughout, no decreased breath sounds, no stridor, no wheezing. 16:33 Abdomen/GI: Inspection: abdomen appears normal, Bowel sounds: active, all quadrants, Palpation: soft, in all quadrants, moderate abdominal tenderness, in the right lower quadrant, rebound tenderness, is not appreciated, voluntary guarding, is elicited in the right lower quadrant. 16:33 Back: CVA tenderness, is absent. 16:33 Skin: cellulitis, is not appreciated, no rash present. 19:40 : Pelvic Exam: The exam is refused by the patient/guardian. The risks and cp consequences are understood by the patient. Vital Signs: 15:30 BP 105 / 72; Pulse 93; Resp 17; Temp 97.7; Pulse Ox 100% ; Weight 61.23 kg; Height 5 ll1 ft. 4 in. (162.56 cm); Pain 10/10; 17:16 BP 116 / 81; Pulse 68; Resp 18; Pulse Ox 100% on R/A; eh3 18:15 BP 116 / 82; Pulse 69; Resp 18; Pulse Ox 100% on R/A; eh3 19:15 BP 114 / 78; Pulse 72; Resp 18; Pulse Ox 100% on R/A; eh3 20:15 BP 108 / 74; Pulse 69; Resp 18; Pulse Ox 100% on R/A; eh3 21:15 BP 103 / 75; Pulse 70; Resp 18; Pulse Ox 100% on R/A; eh3 22:15 BP 102 / 57; Pulse 69; Resp 18; Pulse Ox 100% on R/A; eh3 15:30 Body Mass Index 23.17 (61.23 kg, 162.56 cm) ll1 MDM: 16:27 Patient medically screened. cp 17:00 Differential diagnosis: nephrolithiasis, pyelonephritis, UTI, appendicitis, broad cp ligament pain. 19:48 ED course: consult with DR Howard who recommends transfer for abdominal MRI to r/o cp appendicitis. 19:50 Data reviewed: vital signs, nurses notes, lab test result(s), radiologic studies, cp ultrasound. 19:50 Consideration of Admission/Observation Escalation of care including cp admission/observation considered. Management of patient was discussed with the following: Woodworking Machine Setter: DR Howard. I considered the following discharge prescriptions or medication management in the emergency department Medications were administered in the Emergency Department. See MAR. Test considered but Not performed: Other Details CT abdomen/pelvis to r/o appendicitis. Counseling: I had a detailed discussion with the patient and/or guardian regarding: the historical points, exam findings, and any diagnostic results supporting the discharge/admit diagnosis, lab results, radiology results, the need to transfer to another facility, for higher level of care. 03/04 16:25 Order name: CBC with Diff; Complete Time: 17:34 cp 03/04 17:34 Interpretation: Normal except: HGB 10.5; HCT 31.3; MCV 78.9; MCH 26.5; RDW 15.9. cp 03/04 16:25 Order name: CMP; Complete Time: 18:26 cp 03/04 18:26 Interpretation: Normal except: CRE 0.49. cp 03/04 16:25 Order name: Lipase; Complete Time: 18:26 cp 03/04 16:25 Order name: Urine Microscopic Only; Complete Time: 17:34 cp 03/04 18:27 Interpretation: Normal except: URBC >50; BYST Occasional. cp 03/04 16:25 Order name: HCG-Quantitative; Complete Time: 18:26 cp 03/04 18:26 Interpretation: Abnormal: HCGQ [id number]. cp 03/04 17:00 Order name: Urine Dipstick-Ancillary; Complete Time: 17:34 EDMS 03/04 18:27 Interpretation: Normal except: UBLD 3+; UPROT 1+. cp 03/04 16:25 Order name: IV Saline Lock; Complete Time: 17: cp 03/04 17:02 Order name: Urine --Ancillary (enter results); Complete Time: 17:34 bd 03/04 17:37 Order name: US OB Limited; Complete Time: 20:19 cp 03/04 19:52 Order name: SARS RAPID; Complete Time: 20:46 mw2 03/04 16:25 Order name: Labs collected and sent; Complete Time: 17:10 cp 03/04 16:25 Order name: Urine Dipstick-Ancillary (obtain specimen); Complete Time: 17:10 cp 03/04 16:25 Order name: Urine Test (obtain specimen); Complete Time: 17:10 cp 03/04 17:37 Order name: Pelvic Exam Setup; Complete Time: 18:19 cp Administered Medications: 18:59 Drug: NS 0.9% 1000 ml Route: IV; Rate: 1 bolus; Site: left antecubital; [facility] 20:30 Follow up: IV Status: Completed infusion; IV Intake: 1000ml [facility] 18:59 Drug: Tylenol 1000 mg Route: PO; 3 20:00 Follow up: Response: Pain is decreased [facility] Disposition: 03/05 06:05 Co-signature as Attending PhysicianWilfrido I reviewed the patient's care rt provided by the Advanced Practice Provider and agree with the diagnosis and treatment plan. Disposition Summary: 03/04/22 20:09 Transfer Ordered Transfer Location: Other Acute Care Facility cp Reason: Higher level of care cp Condition: Stable cp Problem: new cp Symptoms: have improved cp Accepting Physician: DR Stubbs(03/04/22 23:07) 3 Diagnosis - 14 weeks gestation of cp - Lower abdominal pain, unspecified cp Forms: - Medication Reconciliation Form cp - SBAR form cp Signatures: Dispatcher [employer] EDNV Wilfrido Sabillon PA PA cp Joel Birmingham RN RN 1 Minal Begum RN RN eh3 Glenn Meredith MD MD rt Corrections: (The following items were deleted from the chart) 03/04 22:59 20:09 doctor cp [facility] 23:02 22:59 doctor 3 cp 23:07 23:02 DR Stubbs [facility]
[2022-03-04 20:42] LABS: SARS-CoV-2 Antigen Rapid Res Negative (Negative)
[2022-03-04 23:53] VITALS: TEMP 97.7; O2SAT 100
[2022-03-05 00:12] VITALS: BP 102/57
== END 2022-03-04 23:07 ==
LOC: ER 15:19
DX: O26.892 Other specified pregnancy related conditions, second trimester (principal); Z3A.14 14 weeks gestation of pregnancy; Z91.018 Allergy to other foods; Z20.822 Contact with and (suspected) exposure to COVID-19
CPT/HCPCS: 85025; 36415; 81025; 84702; 83690; 80053; 76815; 87811; J7030; 81003; 81015; 96360; 96361; 99285